=== PATIENT | male | born 1970 | race Caucasian/White ===

== ENCOUNTER 2017-06-16 21:14 | Inpatient (IN) ==
[2017-06-16] MEDS ORDERED: *HR* Heparin 5,000 UNIT/ML VIAL IVP ONE (21:42)
[2017-06-16] MEDS ORDERED: *HR* Heparin 5,000 UNIT/ML VIAL IVP PRN ×2 (21:42)
[2017-06-16] MEDS ORDERED: dilTIAZem HCl 100 MG in D5% in Water 50 ML IVC SCH (21:45)
[2017-06-16 21:46] LABS: Basophils % 0.3 %; Eosinophils # 0.1 K/mcL (0.0-0.6); Eosinophils % 1.5 %; Hematocrit 42.3 % (37.5-50.1); Hemoglobin 15.1 g/dL (12.9-16.9); Immature Granulocytes % 0.4 % (0-4); Lymphocytes # 2.6 K/mcL (0.6-4.6); Lymphocytes % 28.6 %; Mean Corpuscular HGB Conc 35.7 g/dL (31.6-35.5); Mean Corpuscular Hemoglobin 33.8 pg (28.0-33.3); Mean Corpuscular Volume 94.6 fL (83.0-100.0); Monocytes # 0.8 K/mcL (0.0-1.3); Monocytes % 8.9 %; Neutrophils # 5.4 K/mcL (1.6-8.9); Platelet Count 223 K/mcL (140-400); Red Blood Count 4.47 M/mcL (4.19-5.50); Red Cell Distribution Width 12.1 % (11.5-14.5); Segmented Neutrophils % 60.3 %
[2017-06-16 21:50] LABS: INR 1.2; Prothrombin Time 13.1 Seconds (9.4-12.1)
--- NOTE | 2017-06-16 21:50 | Emergency Department Note ---
Disposition Clinical Impression: New onset atrial fibrillation, Atrial fibrillation with RVR Disposition: Admitted As Inpatient Condition: Good Time of Disposition: 23:27 Arrhythmia/Palpitations HPI - General Chief Complaint: ED Arrhythmia/Palpitations Stated Complaint: rapid HR, dizziness Time Seen by Provider: 06/16/17 21:16 Source: patient, EMS Mode of arrival: EMS Limitations: no limitations Nursing Notes Reviewed: Yes Vital Signs Reviewed: Yes - History of Present Illness HPI Narrative: 46-year-old male history of chronic back pain, hypertension, pack per day smoker presents to the ED via EMS for fatigue. States he has been fatigue over the past several months likely since December. This been more frequent over the past several days and earlier today when he stood up he felt his heart racing. He called the EMS squad and on cardiac monitoring revealed atrial fibrillation with rapid ventricular response as high as 150. He denies any history of atrial fibrillation. Reports racing of the heart denies any chest discomfort. Denies any difficulty in breathing but some shortness of breath that is nothing new attributed to smoking. He denies any other recent illness, fever or productive cough. He takes lisinopril for his high blood pressure and recently increases Zoloft about a month ago. No history of cardiac ischemic disease. Reports echocardiogram several years ago that was reportedly normal. Denies any bloody stool, black tarry, or hemoptysis. He is in between primary care physicians for his chronic back pain. Recently evaluated at residency clinic. He is also reporting some urinary issues including dysuria and when he reports sludge when he urinates. Further history he reports history of prostate issues , takes Flomax this is been an issue over the past several years. He denies any urinary or fecal incontinence. He has pain in his right leg that is chronic as well. No concern for cauda equina this time. A full workup of his atrial fibrillation in progress. Also anticoagulated with heparin and as he has been likely in atrial fibrillation for greater than 48 hours. Patients in agreement with this plan. Pt Subjective Complaint: rapid heart beat, atrial fibrillation - Related Data Home Medications Medication Instructions Recorded Confirmed Lisinopril/Hydrochlorothiazide 1 tab PO DAILY 03/27/17 06/16/17 [Zestoretic 10-12.5 mg Tablet] Sertraline [Zoloft] 150 mg PO DAILY 03/27/17 06/16/17 Tamsulosin [Flomax] 0.4 mg PO DAILY 03/27/17 06/16/17 Pregabalin [Lyrica] 100 mg PO BID 06/16/17 06/16/17 Allergies Allergy/AdvReac Type Severity Reaction Status Date / Time codeine Allergy Difficulty Verified 06/16/17 21:16 Breathing morphine Allergy Difficulty Verified 06/16/17 21:16 Breathing All systems ED: reviewed and negative except as stated. Review of Systems: As Per HPI Constitutional: Reports: weakness. Denies: fever Eyes: Denies: eye pain, vision change ENT ED: Denies: hearing loss Cardiovascular: Reports: palpitations. Denies: chest pain, syncope Respiratory: Reports: cough, dyspnea. Denies: wheezes, hemoptysis Gastrointestinal: Denies: abdominal pain, nausea, vomiting Genitourinary: Reports: dysuria, discharge. Denies: urgency Musculoskeletal: Reports: back pain. Denies: neck pain Integumentary: Denies: rash, abrasion Neurological: Denies: headache, weakness, numbness Endocrine: Reports: fatigue. Denies: heat or cold intolerance Hematological/Lymphatic: Denies: easy bleeding Past Medical History - Past Medical History Attestation: Yes The following information was validated with the patient. Source: patient Medical history: Reports: COPD, GERD, hypertension, other Surgical history: Reports: appendectomy Psychiatric history: Reports: anxiety, depression - Social History Smoking Status: Current every day smoker Smokeless Tobacco Status: No Alcohol use: Reports: occasionally Drug use: Reports: marijuana Physical Exam - General Limitations: no limitations General appearance: alert, in no apparent distress - Head Head exam: atraumatic, normocephalic, normal inspection - Eye Eye exam: Present: normal appearance, PERRL, EOMI - ENT ENT exam: normal exam, normal oropharynx, mucous membranes moist - Neck Neck exam: Present: normal inspection, full ROM, trachea midline - Chest Chest inspection: Present: normal inspection, symmetric chest wall rise. Absent : tenderness - Respiratory Respiratory exam: Present: normal lung sounds bilaterally. Absent: respiratory distress, wheezes - Cardiovascular Cardiovascular exam: Present: tachycardia, irregular rhythm, normal heart sounds. Absent: systolic murmur, diastolic murmur - Expanded Cardiovascular Exam Peripheral pulses: 2+: radial (R), radial (L) - Abdominal Exam Abdominal exam: Present: soft, Non-Tender, normal bowel sounds. Absent: tenderness, distention, guarding, rebound, rigidity - Extremities Exam Extremities exam: Present: normal inspection, full ROM, normal capillary refill. Absent: tenderness, pedal edema, calf tenderness - Back Exam Back exam: Present: paraspinal tenderness, other (Large surgical scar to the lower thoracic and lumbar) - Neurological Exam Neurological exam: Present: alert, oriented X3 - Skin Skin exam: Present: warm, dry, intact, normal color Course - Reevaluation(s) Reevaluation #1: 46-year-old male presents with new onset atrial fibrillation with rapid ventricular response. Reports fatigue over the past several weeks. A workup was initiated. Patient was given 20 mg Cardizem bolus and heart rate has come down to the upper 90s. He has been started on a Cardizem drip. It appears he has been in atrial fibrillation greater than 48 hours. Patient denies any bloody stool, black tarry stools or hemoptysis. His labs or otherwise unremarkable. He is complaining of some acute on chronic back pain and request Percocet for pain. Patient will be admitted for further management and disposition. Patient and family are in agreement with this plan. Impression is atrial fibrillation with rapid ventricular response, new onset. Time: 23:25 Reevaluation #2: Labs reviewed and unremarkable. TSH within normal limits. Troponin 0.02. Chest x-rays unremarkable. Patient will be admitted for new onset atrial fibrillation. Continues to be atrial fibrillation with normal ventricular response heart rate 100. He is stable for admission to the hospital. - Consultations Consultation #1: Spoke with on-call hospitalist mellissa Espinoza to admit for new onset atrial fibrillation RVR. No further orders at this time Time: 23:42 Vital Signs Temperature 98.0 F 06/16/17 21:18 Pulse Rate 136 06/16/17 21:18 Respiratory Rate 18 06/16/17 21:18 Blood Pressure 109/92 06/16/17 21:18 O2 Sat by Pulse Oximetry 97 06/16/17 21:18 Temperature 98 F 06/17/17 04:38 Pulse Rate 78 06/17/17 04:38 Respiratory Rate 16 06/17/17 04:38 Blood Pressure 101/62 06/17/17 04:38 O2 Sat by Pulse Oximetry 95 06/17/17 04:38 Oxygen Delivery Oxygen Delivery Room Air Arrhythmia/Palpitations - Medical Records Medical records reviewed: Yes I reviewed the patient's medical records. - Lab Data Lab results reviewed: Yes I reviewed the patient's lab results. Result diagrams: 06/17/17 04:53 06/17/17 04:53 Lab Results 06/16/17 06/16/17 06/16/17 Range/Units 21:36 21:36 21:36 WBC 8.9 (4.3-11.1) K/mcL RBC 4.47 (4.19-5.50) M/mcL Hgb 15.1 (12.9-16.9) g/dL Hct 42.3 (37.5-50.1) % MCV 94.6 (83.0-100.0) fL MCH 33.8 H (28.0-33.3) pg MCHC 35.7 H (31.6-35.5) g/dL RDW 12.1 (11.5-14.5) % Plt Count 223 (140-400) K/mcL MPV 9.0 L (9.4-12.4) fL Immature Gran % 0.4 (0-4) % Seg Neutrophils % 60.3 % Lymphocytes % 28.6 % Monocytes % 8.9 % Eosinophils % 1.5 % Basophils % 0.3 % Neutrophils # 5.4 (1.6-8.9) K/mcL Lymphocytes # 2.6 (0.6-4.6) K/mcL Monocytes # 0.8 (0.0-1.3) K/mcL Eosinophils # 0.1 (0.0-0.6) K/mcL Basophils # 0.0 (0.0-0.2) K/mcL PT 13.1 H (9.4-12.1) Seconds INR 1.2 APTT 30.2 (26.0-36.0) Seconds Sodium 140 (136-145) mEq/L Potassium 3.7 (3.5-4.5) mEq/L Chloride 109 (98-109) mEq/L Carbon Dioxide 24 (19-29) mEq/L BUN 18 (8-26) mg/dL Creatinine 0.66 L (0.72-1.25) mg/dL Est GFR ( Amer) > 60 (> 60) Est GFR (Non-Af Amer) > 60 (> 60) BUN/Creatinine Ratio 27 H (6-26) Glucose 105 H (70-99) mg/dL Calculated Osmolality 292 (280-300) Calcium 9.3 (8.6-10.8) mg/dL Troponin I (0-0.03) ng/mL TSH 0.609 (0.350-4.840) mcIU/mL Urine Color (Yellow) Urine Clarity (Clear) Urine pH (5.0-8.0) pH Units Ur Specific [place] (1.010-1.025) Urine Protein (Neg-Trace) mg/dL Urine Glucose (UA) (Normal) mg/dL Urine Ketones (Negative) mg/dL Urine Blood (Negative) Urine Nitrite (Negative) Urine Bilirubin (Negative) Urine Urobilinogen (Normal) mg/dL Ur Leukocyte Esterase (Negative) Urine Microscopic RBC (0-3) per hpf Urine Microscopic WBC (0-3) per hpf Ur Squamous Epith Cells (None-Few) per lpf Urine Bacteria (None-Few) per hpf Hyaline Casts (None-Few) per lpf Ur Culture Indicated? (NO) 06/16/17 06/16/17 Range/Units 21:36 22:17 WBC (4.3-11.1) K/mcL RBC (4.19-5.50) M/mcL Hgb (12.9-16.9) g/dL Hct (37.5-50.1) % MCV (83.0-100.0) fL MCH (28.0-33.3) pg MCHC (31.6-35.5) g/dL RDW (11.5-14.5) % Plt Count (140-400) K/mcL MPV (9.4-12.4) fL Immature Gran % (0-4) % Seg Neutrophils % % Lymphocytes % % Monocytes % % Eosinophils % % Basophils % % Neutrophils # (1.6-8.9) K/mcL Lymphocytes # (0.6-4.6) K/mcL Monocytes # (0.0-1.3) K/mcL Eosinophils # (0.0-0.6) K/mcL Basophils # (0.0-0.2) K/mcL PT (9.4-12.1) Seconds INR APTT (26.0-36.0) Seconds Sodium (136-145) mEq/L Potassium (3.5-4.5) mEq/L Chloride (98-109) mEq/L Carbon Dioxide (19-29) mEq/L BUN (8-26) mg/dL Creatinine (0.72-1.25) mg/dL Est GFR ( Amer) (> 60) Est GFR (Non-Af Amer) (> 60) BUN/Creatinine Ratio (6-26) Glucose (70-99) mg/dL Calculated Osmolality (280-300) Calcium (8.6-10.8) mg/dL Troponin I 0.02 (0-0.03) ng/mL TSH (0.350-4.840) mcIU/mL Urine Color Yellow (Yellow) Urine Clarity Cloudy A (Clear) Urine pH 7.5 (5.0-8.0) pH Units Ur Specific [place] 1.022 (1.010-1.025) Urine Protein Negative (Neg-Trace) mg/dL Urine Glucose (UA) Normal (Normal) mg/dL Urine Ketones Negative (Negative) mg/dL Urine Blood Negative (Negative) Urine Nitrite Negative (Negative) Urine Bilirubin Negative (Negative) Urine Urobilinogen Normal (Normal) mg/dL Ur Leukocyte Esterase Negative (Negative) Urine Microscopic RBC 0-3 (0-3) per hpf Urine Microscopic WBC 0-3 (0-3) per hpf Ur Squamous Epith Cells None Seen (None-Few) per lpf Urine Bacteria None Seen (None-Few) per hpf Hyaline Casts None Seen (None-Few) per lpf Ur Culture Indicated? NO (NO) - Radiology Data Radiology results reviewed: Yes I reviewed the patient's radiology results. Chest X-Ray 06/16/17 21:23 IMPRESSION: No acute abnormality detected. D/ / Ivan Zarate MD / Ivan Zarate MD Interpreting Provider: Ivan Zarate MD - EKG Data EKG attestation: Yes I reviewed and interpreted this EKG. EKG results narrative: EKG performed 2124 reveals atrial fibrillation with rapid ventricular response hundred 34 bpm, QRS 103, occasional PVC. No ST elevations or depression. Compared to old EKG performed 12/04/2016 shows normal sinus rhythm 71 bpm. This is new onset atrial fibrillation. Attestation Statement - Attestation Attestation: I, Dwayne Harrison, examined this patient and my medical decision-making was reviewed with the PARTS DEPARTMENT SUPERVISOR/PA/Advanced Practice Nurse/Resident Physician. I agree with the documented findings, disposition and treatment plan as described except to the extent set forth below. 46-year-old male presents emergency Department with concerns of rapid heart rate and lightheadedness. Patient states he has had increasing weakness and lightheadedness with exertion over the past few days. EMS states patient is in atrial fibrillation with a rapid ventricular rate. He states his heart rate increase to above 150 during the transport to the hospital. Patient denies chest pain in the emergency department. No history of atrial fibrillation in the past. Patient will be started on Cardizem and heparin for further evaluation of his A. fib.
[2017-06-16 21:53] LABS: Activated Partial Thrombo Time 30.2 Seconds (26.0-36.0)
[2017-06-16 21:58] LABS: BUN/Creatinine Ratio 27 (6-26); Blood Urea Nitrogen 18 mg/dL (8-26); Calcium 9.3 mg/dL (8.6-10.8); Carbon Dioxide 24 mEq/L (19-29); Chloride 109 mEq/L (98-109); Glucose 105 mg/dL (70-99); Osmolality,Calculated 292 (280-300); Potassium 3.7 mEq/L (3.5-4.5); Sodium 140 mEq/L (136-145); eGFR For African Americans > 60 (> 60); eGFR For Non-African Americans > 60 (> 60)
[2017-06-16] MEDS: Heparin 25,000 UNIT/500 ML D5W 25,000 UNIT/500 ML MLS IVC SCH (22:01)
[2017-06-16 22:20] LABS: Thyroid Stimulating Hormone 0.609 mcIU/mL (0.350-4.840)
[2017-06-16 22:27] LABS: Bilirubin,Urine Negative (Negative); Blood,Urine Negative (Negative); Clarity,Urine Cloudy (Clear); Color,Urine Yellow (Yellow); Glucose,Urine (UA) Normal (Normal); Ketones,Urine Negative (Negative); Leukocyte Esterase,Urine Negative (Negative); Nitrite,Urine Negative (Negative); PH,Urine 7.5 pH Units (5.0-8.0); Protein,Urine Negative (Neg-Trace); Specific Gravity,Urine 1.022 (1.010-1.025); Urobilinogen,Urine Normal (Normal)
[2017-06-16 22:30] LABS: Bacteria,Urine None Seen per hpf (None-Few); Hyaline Casts,Urine None Seen per lpf (None-Few); RBC,Urine 0-3 per hpf (0-3); Squamous Epithelial Cell,Urine None Seen per lpf (None-Few); WBC,Urine 0-3 per hpf (0-3)
[2017-06-16] MEDS ORDERED: Acetaminophen 325 MG TABLET PO ONE (22:40)
[2017-06-16] MEDS ORDERED: *HR* OxyCODONE/APAP 5/325 TABLET PO ONE (23:25)
[2017-06-16] MEDS ORDERED: 0.9 % Sodium Chloride 1,000 ML IVC SCH (23:45)
[2017-06-17] MEDS ORDERED: Naloxone 0.4 MG/ML INJ IVP PRN (02:10)
--- NOTE | 2017-06-17 02:18 | Internal Med History&Physical ---
Date of Encounter: 06/17/17 Time of Encounter: 02:17 Assessment and Plan (1) New onset atrial fibrillation Current visit: Yes Status: Acute Symptoms date back to 2 months prior to presentation but weakness and shortness of breath associated this time NO illicit drug use Electrolytes are WNL, check Magnesium level TSH is WNL EKG shows Afib with RVR, history of same in mother HR controlled with cardizem, transition to oral diltiazem On heparin drip, continue CHADs score is 1 for HTN, start on ASA Continue heparin till ECHO reported and cardiology eval Check A1C Resume home medication for HTN which is currently controlled (2) HTN (hypertension) Current visit: Yes Status: Chronic Controlled on current meds, continue same, monitor closely Qualifiers: Hypertension type: essential hypertension Qualified Code(s): I10 - Essential (primary) hypertension (3) Tobacco abuse Current visit: Yes Status: Chronic Encouraged cessation (4) COPD (chronic obstructive pulmonary disease) Current visit: Yes Status: Chronic Not in exacerbation Duonebs prn Qualifiers: COPD type: unspecified COPD Qualified Code(s): J44.9 - Chronic obstructive pulmonary disease, unspecified (5) Chronic low back pain Current visit: Yes Status: Chronic Resume home dose of percocet Qualifiers: Back pain laterality: unspecified Sciatica presence: unspecified whether sciatica present Qualified Code(s): M54.5 - Low back pain; G89.29 - Other chronic pain; G89.29 - Other chronic pain Internal Medicine - H&P: HPI Chief complaint: Palpitations Admitted From: Home Plans for Post Hospital Care: Home History of present illness: Mr. Reyes is a 46 year old male with PMH of Obesity and HTN, as well as tobacco abuse he was in his usual state of health till 2 months ago when he begun having palpitations, he initially though it was related to his anxiety/panic attacks and his PCP increased his Zoloft to 150mg, but his symptoms persisted He had associated dizziness, drenching sweats and fatigue associated with the palpitations today, hence his presentation to the ER for evaluation EMS on arrival found patient to be in A fib with RVR, same is reported on EKG NO chest pain, shortness of breath had improved at time of presentation He denies cough, leg swelling, orthopnea or PND No n/v/diarrhea, no changes in bowel or urinary habits His mother has Afib as well He denies illicit drug use He responded to a bolus of cardizem and was started on cardizem drip by ER, respnded, at time of review, HR was 80 but not sinus ROS is significant for chronic low back pain due to multiple slipped discs. Patient is otherwise now hemodynamically stable No hx of thyroid disease Past Med Surg Social Fam HX - Past Medical History Medical history: COPD, GERD, hypertension, other Psychiatric history: anxiety, depression - Past Surgical History Surgical History: appendectomy - Social History Smoking Status: Current every day smoker Packs per day: 2 Smokeless Tobacco Status: No Alcohol use: occasionally Drug use: marijuana Internal Medicine - H&P: Meds Lisinopril/Hydrochlorothiazide [Zestoretic 10-12.5 mg Tablet] 1 tab PO DAILY [History] Sertraline [Zoloft] 150 mg PO DAILY 03/27/17 [History] Tamsulosin [Flomax] 0.4 mg PO DAILY 03/27/17 [History] Pregabalin [Lyrica] 100 mg PO BID 06/16/17 [History] 3 Allergy/AdvReac Type Severity Reaction Status Date / Time codeine Allergy Difficulty Verified 06/16/17 21:16 Breathing morphine Allergy Difficulty Verified 06/16/17 21:16 Breathing All Systems PM: A 10-system review of systems was performed and is negative for pertinent findings except as documented above in the HPI. - Constitutional Constitutional: as per HPI - EENT Eyes: as per HPI Ears: as per HPI Nose, mouth and throat: as per HPI - Cardiovascular Cardiovascular ROS IM: as per HPI - Respiratory Respiratory: as per HPI - Gastrointestinal Gastrointestinal: as per HPI - Musculoskeletal Musculoskeletal ROS IM: as per HPI - Integumentary Integumentary IM: as per HPI - Neurological Neurological ROS: as per HPI - Hematologic/Lymphatic Hematologic/Lymphatic: as per HPI - Constitutional Vitals: Temp Pulse Resp BP Pulse Ox 97.6 F 89 17 121/85 97 06/17/17 00:27 06/17/17 00:27 06/17/17 00:27 06/17/17 00:27 06/17/17 00:27 General appearance: Present: A&O X 3, pleasant, no acute distress, obese - Head Head exam: Present: atraumatic, normocephalic - Eye Eye exam: Present: PERRL, conjuntiva pink, sclera anicteric Pupils: Present: PERRL - Neck Neck exam general surgery: Present: supple, trachea midline. Absent: lymphadenopathy - Respiratory Respiratory exam: Present: CTAB. Absent: accessory muscle use, rales, rhonchi, wheezes - Cardiovascular Cardiovascular exam: Present: irregular rhythm, +S1, +S2. Absent: diastolic murmur, gallop, rubs, systolic murmur - GI/Abdominal GI/Abdominal exam: Present: normal bowel sounds, soft, no peritoneal signs. Absent: distended, tenderness - Extremities Exam Extremities exam: Present: warm, radial pulses palpable and symmetrical. Absent : calf tenderness, cyanotic, pedal edema - Neurological Exam Neurological exam: Present: alert, CN II-XII intact, oriented X3, no focal deficits. Absent: pronater drift, facial droop, speech deficit - Skin Skin exam: Present: dry, intact Internal Med - H&P Results - Labs CBC & Chem 7: 06/16/17 21:36 06/16/17 21:36
[2017-06-17] MEDS: dilTIAZem HCl 60 MG TABLET PO SCH ×3 (02:29→17:52)
[2017-06-17] MEDS: *HR* OxyCODONE/APAP 10/325 TABLET PO PRN ×5 (02:29→21:49)
[2017-06-17] MEDS ORDERED: Ipratropium/Albuterol Neb 3 ML IH PRN (03:02)
[2017-06-17 05:04] LABS: Basophils % 0.5 %; Eosinophils # 0.2 K/mcL (0.0-0.6); Eosinophils % 2.6 %; Hematocrit 43.3 % (37.5-50.1); Hemoglobin 15.2 g/dL (12.9-16.9); Immature Granulocytes % 0.7 % (0-4); Lymphocytes # 2.8 K/mcL (0.6-4.6); Lymphocytes % 36.8 %; Mean Corpuscular HGB Conc 35.1 g/dL (31.6-35.5); Mean Corpuscular Hemoglobin 33.5 pg (28.0-33.3); Mean Corpuscular Volume 95.4 fL (83.0-100.0); Mean Platelet Volume 9.1 fL (9.4-12.4); Monocytes # 0.7 K/mcL (0.0-1.3); Monocytes % 8.5 %; Neutrophils # 3.9 K/mcL (1.6-8.9); Platelet Count 208 K/mcL (140-400); Red Blood Count 4.54 M/mcL (4.19-5.50); Red Cell Distribution Width 12.3 % (11.5-14.5); Segmented Neutrophils % 50.9 %
[2017-06-17 05:12] LABS: BUN/Creatinine Ratio 22 (6-26); Blood Urea Nitrogen 14 mg/dL (8-26); Calcium 8.9 mg/dL (8.6-10.8); Carbon Dioxide 24 mEq/L (19-29); Chloride 109 mEq/L (98-109); Glucose 113 mg/dL (70-99); Osmolality,Calculated 289 (280-300); Potassium 3.6 mEq/L (3.5-4.5); Sodium 139 mEq/L (136-145); eGFR For African Americans > 60 (> 60); eGFR For Non-African Americans > 60 (> 60)
[2017-06-17 05:21] LABS: Activated Partial Thrombo Time 136.8 Seconds (26.0-36.0)
[2017-06-17 05:25] LABS: Heparin anti-factor XA UFH 0.61 IU/mL (0.30-0.70)
[2017-06-17] MEDS: Pregabalin 50 MG CAPSULE PO SCH ×2 (09:31→20:58)
[2017-06-17] MEDS: Aspirin Enteric Coated 81 MG Tablet PO SCH (09:31)
--- NOTE | 2017-06-17 13:30 | Cardiology Consult Note ---
Date of Encounter: 06/17/17 Time of Encounter: 13:24 Assessment and Plan (1) Chest pain Current Visit: Yes Status: Acute C/o chest pain with exertion. May be related to afib. Troponin negative. No acute ST changes. TTE shows normal LV function. Cardiac risk factors include HTN, Tobacco use, and significant family history of CAD in 1st degree relative (mother ID age 50, father ID in his 40's). Recommend stress test in the am. Qualifiers: Chest pain type: unspecified Qualified Code(s): R07.9 - Chest pain, unspecified (2) Atrial fibrillation with RVR Current Visit: Yes Status: Acute Presented with atrial fibrillation with RVR. C/o symptoms for one month. No previous diagnosis. Now rate controlled on oral cardizem. Convert to long acting at discharge. He is a CHADS VASc=1. Currently on heparin gtt. May plan to cardiovert in one month. Will require at least short term AC. Recommend NOAC if he does not convert to NSR prior to d/c . Patient agrees with plan. TTE- LVEF 55%. Normal LV chamber size and overall function. Indeterminate diastolic function. Grossly normal right ventricular structure and function. Severely dilated left atrium. Moderate to severely dilated right atrium. Unable to estimate RVSP due to lack of adequate TR jet. No obvious significant valvular dysfunction. Stress test tomorrow. Discussion w patient/family: The assessment and plan as outlined above was discussed with the patient and/or family members who expressed understanding and agreement. All questions were answered. Thank you for involving us in the care of your patient. Please call with any questions. History of Present Illness Consult date: 06/17/17 Requesting physician: Mesfin Burks Consult reason: Atrial fibrillation with RVR. Chief complaint: racing heart, chest pain. History of present illness: Mr. Reyes is a 46 year old male with a history of HTN, COPD, and tobacco use who presented with the c/o his heart racing and intermittent chest pain for one month. He was found to be in atrial fibrillation with RVR. Cardiology consulted for recommendations. He denies previous history of afib or heart disease. His symptoms started one month ago. Symptoms increase with activity and may occur at rest. he c/o chest pressure radiating to his neck and jaw that are associated with his palpitations but sometimes occur without palpitations. he also c/o SOB. Reports undergoing LHC in 2004. No flow limiting lesions seen at that time. He was started on cardizem and heparin gtt. He was converted to oral cardizem once he was rate controlled. Past Med Surg Social Fam HX - Past Medical History Medical history: COPD, GERD, hypertension, other Psychiatric history: anxiety, depression - Past Surgical History Surgical History: appendectomy - Social History Smoking Status: Current every day smoker Packs per day: 2 Smokeless Tobacco Status: No Alcohol use: occasionally Drug use: marijuana Medications and Allergies Lisinopril/Hydrochlorothiazide [Zestoretic 10-12.5 mg Tablet] 1 tab PO DAILY [History] Sertraline [Zoloft] 150 mg PO DAILY 03/27/17 [History] Tamsulosin [Flomax] 0.4 mg PO DAILY 03/27/17 [History] Pregabalin [Lyrica] 100 mg PO BID 06/16/17 [History] 3 Allergy/AdvReac Type Severity Reaction Status Date / Time codeine Allergy Difficulty Verified 06/16/17 21:16 Breathing morphine Allergy Difficulty Verified 06/16/17 21:16 Breathing All Systems Review: A 10-system review of systems was performed and is negative for pertinent findings except as documented above in the HPI. Physical Examination Vital Signs, Last 4 Hours Temp Pulse Resp BP Pulse Ox 06/17/17 11:40 97.8 F 67 20 116/75 97 General: Conversant, No Apparent Distress HEENT: Atraumatic, Normocephaly, Mucus Membranes Moist Neck: No JVD, Normal carotid pulses Cardiac: Other (Irregularly irregular) Lungs: Normal Breath Sounds, No Wheeze, Rales, Rhonchi Neuro: Alert and responsive, No focal deficits noted Abdomen: Soft, Non-Tender Skin: No rashes noted on visualized skin Musculoskeletal: No Chest Wall Tenderness Extremities: No Clubbing, No Cyanosis, No Edema, Normal Pulses Results 06/17/17 04:53 06/17/17 04:53 Lab Results 06/17/17 06/17/17 06/17/17 04:53 04:53 04:53 WBC 7.7 Hgb 15.2 Hct 43.3 Plt Count 208 APTT 136.8 H* D Sodium 139 Potassium 3.6 Chloride 109 Carbon Dioxide 24 BUN 14 Creatinine 0.65 L Glucose 113 H Calcium 8.9 Magnesium 2.0 06/17/17 12:18 WBC Hgb Hct Plt Count APTT 70.1 H Sodium Potassium Chloride Carbon Dioxide BUN Creatinine Glucose Calcium Magnesium - Imaging and Cardiology Chest Xray: report reviewed Echo: report reviewed - EKG Interpretation EKG results cardiology: personally reviewed Consult Discharge Plan - Plan Referrals: Claudine Wang [Primary Care Provider] -
[2017-06-17] MEDS: Heparin 25,000 UNIT/500 ML D5W 25,000 UNIT/500 ML MLS IVC SCH (13:59)
--- NOTE | 2017-06-17 15:14 | Electrocardiograph Report ---
[facility] [employer] Test Date: 2017-06-16 Pat Name: Matt Reyes Department: [id number] Room: 2A37 Gender: M Inside Sales Agent: KAHLIL : [id number] Requested By: Neymar Diaz Order Number: [id number] Reading MD: Bon Kwan MD Measurements Intervals Christmas Rate: 134 P: MI: 0 QRS: 59 QRSD: 103 T: -8 QT: 310 QTc: 389 Interpretive Statements ATRIAL FIBRILLATION WITH RAPID VENTRICULAR RESPONSE WITH ABERRANT CONDUCTION OR VENTRICULAR PREMATURE COMPLEXES NONSPECIFIC ST & T-WAVE ABNORMALITY Electronically Signed On 06-17-2017 15:13:15 EST by Bon Kwan MD
[2017-06-17] MEDS: Acetaminophen 325 MG TABLET PO PRN (20:58)
[2017-06-18] MEDS: dilTIAZem HCl 60 MG TABLET PO SCH (01:57)
[2017-06-18] MEDS: *HR* OxyCODONE/APAP 10/325 TABLET PO PRN ×5 (01:57→22:32)
[2017-06-18 04:07] LABS: Basophils % 0.7 %; Eosinophils # 0.3 K/mcL (0.0-0.6); Eosinophils % 4.1 %; Hematocrit 40.5 % (37.5-50.1); Hemoglobin 13.9 g/dL (12.9-16.9); Immature Granulocytes % 0.8 % (0-4); Lymphocytes # 2.5 K/mcL (0.6-4.6); Lymphocytes % 40.1 %; Mean Corpuscular HGB Conc 34.3 g/dL (31.6-35.5); Mean Corpuscular Hemoglobin 33.4 pg (28.0-33.3); Mean Corpuscular Volume 97.4 fL (83.0-100.0); Mean Platelet Volume 9.4 fL (9.4-12.4); Monocytes # 0.6 K/mcL (0.0-1.3); Monocytes % 9.2 %; Neutrophils # 2.8 K/mcL (1.6-8.9); Nucleated Red Blood Cells 0.3 /100 WBC (0); Platelet Count 218 K/mcL (140-400); Red Blood Count 4.16 M/mcL (4.19-5.50); Red Cell Distribution Width 12.1 % (11.5-14.5); Segmented Neutrophils % 45.1 %
[2017-06-18 04:22] LABS: BUN/Creatinine Ratio 23 (6-26); Blood Urea Nitrogen 16 mg/dL (8-26); Calcium 9.1 mg/dL (8.6-10.8); Carbon Dioxide 26 mEq/L (19-29); Chloride 107 mEq/L (98-109); Glucose 93 mg/dL (70-99); Osmolality,Calculated 291 (280-300); Sodium 140 mEq/L (136-145); eGFR For African Americans > 60 (> 60); eGFR For Non-African Americans > 60 (> 60)
[2017-06-18 04:23] LABS: Potassium 4.2 mEq/L (3.5-4.5)
[2017-06-18] MEDS ORDERED: Regadenoson 0.4 MG/5 ML SYRINGE IVP ONE (06:15)
[2017-06-18] MEDS: Heparin 25,000 UNIT/500 ML D5W 25,000 UNIT/500 ML MLS IVC SCH (06:35)
--- NOTE | 2017-06-18 07:34 | Event Note ---
Date of Encounter: 06/17/17 Time of Encounter: 07:34 Patient seen and examined this AM. 53 year old male presented with palpitations found to have new onset afib with RVR. 1 New onset afib - cardizem drip transitioned to oral. Heparin drip continued. Started on aspirin, CHADs score is 1. Echocardiogram ordered. Cardiology consulted, recommendations appreciated. 2 Hypertension - continue current medications and monitor.
--- NOTE | 2017-06-18 09:39 | Cardiology Progress Note ---
Date of Encounter: 06/18/17 Time of Encounter: 08:00 Assessment and Plan (1) Chest pain Current Visit: Yes Status: Acute C/o chest pain with exertion. May be related to afib. Troponin negative. No acute ST changes. TTE shows normal LV function. Cardiac risk factors include HTN, Tobacco use, and significant family history of CAD in 1st degree relative (mother MS age 50, father MS in his 40's). Stress test is pending. Qualifiers: Chest pain type: unspecified Qualified Code(s): R07.9 - Chest pain, unspecified (2) Atrial fibrillation with RVR Current Visit: Yes Status: Acute Presented with atrial fibrillation with RVR. C/o symptoms for one month. No previous diagnosis. Converted to NSR on oral cardizem. Convert to long acting . He is a CHADS VASc=1. Currently on heparin gtt. May plan to cardiovert in one month. Now that he is SR recommend asa for CVA prevention. TTE- LVEF 55%. Normal LV chamber size and overall function. Indeterminate diastolic function. Grossly normal right ventricular structure and function. Severely dilated left atrium. Moderate to severely dilated right atrium. Unable to estimate RVSP due to lack of adequate TR jet. No obvious significant valvular dysfunction. Stress test pending. 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 Last sleep study in 1999. Recommend sleep study in the out-pt setting. (3) Dizziness Current Visit: Yes Status: Acute Patient reports being seen in the ER one week ago with chest pain and dizziness. Reports frequent dizziness. May have been related to afib. Denies dizziness currently. While in afib noted to have 2.5 second pauses and HR in the 40's at times. Now NSR. Recommend sleep study. Carotid US ordered. Discussion w patient/family: The assessment and plan as outlined above was discussed with the patient and/or family members who expressed understanding and agreement. All questions were answered. Thank you for involving us in the care of your patient. Please call with any questions. Subjective Principal diagnosis: atrial fibrillation with RVR Interval history: Mr. Reyes denies chest pain overnight. He c/o extreme fatigue and says his head feels like a bowling ball. C/o frequent dizziness prior to admission. Reports ER visit where he was told he need a carotid US. Objective Vital Signs Temp Pulse Resp BP Pulse Ox 06/18/17 03:52 97.5 F L 55 18 109/67 95 06/17/17 23:47 97.6 F 63 18 105/63 95 06/17/17 20:22 97.6 F 56 18 104/63 96 06/17/17 15:51 97.8 F 67 18 104/66 95 06/17/17 11:40 97.8 F 67 20 116/75 97 Intake and Output 06/17/17 06/18/17 06/18/17 23:59 07:59 15:59 Intake Total 978 / 978 322 / 322 Output Total 500 / 500 Balance 478 / 478 322 / 322 Intake: IV Fluids 978 / 978 322 / 322 0.9 % Sodium Chloride 1,000 ML 800 / 800 @ 50 mls/hr IVC .Q20H BRIANA Rx#: [id number] Heparin 25,000 UNIT/500 ML D5W 178 / 178 322 / 322 25,000 unit In 500 ml @ 14 UNIT /KG/HR 38.61 mls/hr IVC . [id number] BRIANA Rx#:[id number] Output: Urine 500 / 500 Other: Weight 140.699 kg Patient Weight 06/18/17 23:59 Weight 140.699 kg General: Conversant, No Apparent Distress HEENT: Atraumatic, Normocephaly, Mucus Membranes Moist Neck: No JVD, Normal carotid pulses Cardiac: Reg Rate and Rhythm, Normal S1 and S2, No Murmur Lungs: Normal Breath Sounds, No Wheeze, Rales, Rhonchi Neuro: Alert and responsive, No focal deficits noted Abdomen: Soft, Non-Tender Skin: No rashes noted on visualized skin Musculoskeletal: No Chest Wall Tenderness Extremities: No Clubbing, No Cyanosis, No Edema, Normal Pulses Results 06/18/17 03:25 06/18/17 03:25 Lab Results 06/17/17 06/17/17 06/18/17 12:18 19:23 03:25 WBC 6.1 Hgb 13.9 Hct 40.5 Plt Count 218 APTT 70.1 H 71.6 H Sodium Potassium Chloride Carbon Dioxide BUN Creatinine Glucose Calcium Troponin I 06/18/17 06/18/17 03:25 03:25 WBC Hgb Hct Plt Count APTT Sodium 140 Potassium 4.2 Chloride 107 Carbon Dioxide 26 BUN 16 Creatinine 0.71 L Glucose 93 Calcium 9.1 Troponin I 0.01 - Imaging and Cardiology Stress Test: pending Echo: report reviewed - EKG Interpretation EKG results cardiology: personally reviewed Consult Discharge Plan - Plan Referrals: Claudine Wang [Primary Care Provider] - Prescriptions: Apixaban [Eliquis] 5 mg PO BID #30 tablet
[2017-06-18] MEDS: Pregabalin 50 MG CAPSULE PO SCH ×2 (09:52→20:17)
[2017-06-18] MEDS: Aspirin Enteric Coated 81 MG Tablet PO SCH (09:52)
[2017-06-18] MEDS: Diltiazem CD (24hr) 180 MG CAPSULE PO SCH (11:16)
[2017-06-18] MEDS: Silvasorb 44.4 ML TUBE TP SCH (13:50)
[2017-06-18] MEDS: Acetaminophen 325 MG TABLET PO PRN (13:57)
[2017-06-18] MEDS: Doxycycline 100 MG CAPSULE PO SCH (20:17)
--- NOTE | 2017-06-19 00:38 | Internal Med Progress Note ---
Date of Encounter: 06/18/17 Time of Encounter: 11:36 - Assessment and plan (1) Chest pain Current Visit: Yes Status: Acute Assessment and plan: Stress test pending. Likely DC tomorrow AM if negative and remains stable. Qualifiers: Chest pain type: unspecified Qualified Code(s): R07.9 - Chest pain, unspecified (2) New onset atrial fibrillation Current Visit: Yes Status: Acute (3) Cellulitis of toe of left foot Current Visit: Yes Status: Acute Assessment and plan: Patient ripped off nail causing infection. Informed him now that he will be on asa and possibly antiocagulants in the future, this puts high risk for bleeding on top of the infection risk. Start Doxycycline. (4) Atrial fibrillation with RVR Current Visit: Yes Status: Acute (5) HTN (hypertension) Current Visit: Yes Status: Chronic Qualifiers: Hypertension type: essential hypertension Qualified Code(s): I10 - Essential (primary) hypertension (6) COPD (chronic obstructive pulmonary disease) Current Visit: Yes Status: Chronic Qualifiers: COPD type: unspecified COPD Qualified Code(s): J44.9 - Chronic obstructive pulmonary disease, unspecified - Subjective Interval history: No acute events. Denies cp, sob, palpitations. - Constitutional Vitals: Temp Pulse Resp BP Pulse Ox 97.5 F L 56 18 119/69 93 06/18/17 21:11 06/18/17 21:11 06/18/17 21:11 06/18/17 21:11 06/18/17 21:11 General appearance: Present: A&O X 3, pleasant, no acute distress, obese Exam: CVS: RRR Lungs: CTAB Ext: left great toe with granulation tissue and the lateral nail bed. Internal Medicine: Result - Labs CBC & Chem 7: 06/18/17 03:25 06/18/17 03:25 Labs: Short CBC 06/18/17 Range/Units 03:25 WBC 6.1 (4.3-11.1) K/mcL Hgb 13.9 (12.9-16.9) g/dL Hct 40.5 (37.5-50.1) % Plt Count 218 (140-400) K/mcL Neutrophils # 2.8 (1.6-8.9) K/mcL BMP 06/18/17 03:25 Sodium 140 Potassium 4.2 Chloride 107 Carbon Dioxide 26 BUN 16 Creatinine 0.71 L Glucose 93 Calcium 9.1 Cardiac Enzymes 06/18/17 Range/Units 03:25 Troponin I 0.01 (0-0.03) ng/mL - ABG Interpretation ABG results: PT/INR, D-dimer PT 13.1 Seconds (9.4-12.1) H 06/16/17 21:36 Consult Discharge Plan - Plan Referrals: Claudine Wang [Primary Care Provider] - Prescriptions: Apixaban [Eliquis] 5 mg PO BID #30 tablet
[2017-06-19 03:03] LABS: Basophils % 0.6 %; Eosinophils # 0.2 K/mcL (0.0-0.6); Eosinophils % 3.4 %; Hematocrit 41.1 % (37.5-50.1); Lymphocytes % 38.7 %; Mean Corpuscular HGB Conc 34.1 g/dL (31.6-35.5); Mean Corpuscular Hemoglobin 33.3 pg (28.0-33.3); Mean Corpuscular Volume 97.6 fL (83.0-100.0); Mean Platelet Volume 9.1 fL (9.4-12.4); Monocytes # 0.5 K/mcL (0.0-1.3); Monocytes % 10.3 %; Neutrophils # 2.4 K/mcL (1.6-8.9); Platelet Count 209 K/mcL (140-400); Red Blood Count 4.21 M/mcL (4.19-5.50); Red Cell Distribution Width 12.3 % (11.5-14.5)
[2017-06-19 03:17] LABS: BUN/Creatinine Ratio 18 (6-26); Blood Urea Nitrogen 13 mg/dL (8-26); Calcium 9.7 mg/dL (8.6-10.8); Carbon Dioxide 31 mEq/L (19-29); Chloride 104 mEq/L (98-109); Glucose 89 mg/dL (70-99); Osmolality,Calculated 290 (280-300); Potassium 4.6 mEq/L (3.5-4.5); Sodium 140 mEq/L (136-145); eGFR For African Americans > 60 (> 60); eGFR For Non-African Americans > 60 (> 60)
[2017-06-19] MEDS: *HR* OxyCODONE/APAP 10/325 TABLET PO PRN ×4 (06:51→19:36)
[2017-06-19] MEDS: Pregabalin 50 MG CAPSULE PO SCH ×2 (08:54→19:36)
[2017-06-19] MEDS: Aspirin Enteric Coated 81 MG Tablet PO SCH (08:55)
[2017-06-19] MEDS: Doxycycline 100 MG CAPSULE PO SCH ×2 (08:55→19:36)
[2017-06-19] MEDS: Diltiazem CD (24hr) 180 MG CAPSULE PO SCH (09:03)
[2017-06-19] MEDS: Silvasorb 44.4 ML TUBE TP SCH ×2 (14:45→22:17)
[2017-06-19] MEDS: Acetaminophen 325 MG TABLET PO PRN ×2 (18:20→18:24)
[2017-06-19] MEDS ORDERED: hydrOXYzine pamoate 25 MG CAPSULE PO PRN (20:37)
[2017-06-20] MEDS: *HR* OxyCODONE/APAP 10/325 TABLET PO PRN ×3 (00:11→10:13)
--- NOTE | 2017-06-20 00:25 | Internal Med Progress Note ---
Date of Encounter: 06/19/17 Time of Encounter: 12:22 - Assessment and plan (1) Chest pain Current Visit: Yes Status: Acute Assessment and plan: Stress test negative for ischemia, symptoms was from afib with rvr. Qualifiers: Chest pain type: unspecified Qualified Code(s): R07.9 - Chest pain, unspecified (2) New onset atrial fibrillation Current Visit: Yes Status: Acute Assessment and plan: Heavy smoker and coffee drinker (4 cups per day), and MELISSA, presented with one month of cp/palpitations found to be in atrial fibrillation with RVR. He was started on cardizem drip, converted to NSR and then transitioned to oral. Cardiology was consulted and patient had stress test which was negative. He is to go home on Eliquis. He has been bradycardic but asymptomatic in past day after starting PO Cardizem. Given he is back to NSR and no longer tachycardic, most likely main triggers are tobacco, caffeine are heavy contribution on top of MELISSA. 06/19: Will monitor him throughout the day after Cardizem has been held today. Depending on his heart rate in the morning, we may see if cardizem should be resumed. He will be discharged home with Eliquis. (3) Cellulitis of toe of left foot Current Visit: Yes Status: Acute Assessment and plan: Patient ripped off nail causing infection. Informed him now that he will be on asa and possibly antiocagulants in the future, this puts high risk for bleeding on top of the infection risk. Continue doxycycline (4) Atrial fibrillation with RVR Current Visit: Yes Status: Acute (5) HTN (hypertension) Current Visit: Yes Status: Chronic Qualifiers: Hypertension type: essential hypertension Qualified Code(s): I10 - Essential (primary) hypertension (6) COPD (chronic obstructive pulmonary disease) Current Visit: Yes Status: Chronic Qualifiers: COPD type: unspecified COPD Qualified Code(s): J44.9 - Chronic obstructive pulmonary disease, unspecified - Subjective Interval history: Patient frusterated he would like to smoke. HR has been borderline lower normal limit this AM and cardizem was held. He denies cp, sob, palpitations, n/ v, diaphoresis - Constitutional Vitals: Temp Pulse Resp BP Pulse Ox 97.7 F 57 17 116/65 94 06/20/17 00:14 06/20/17 00:14 06/20/17 00:14 06/20/17 00:14 06/20/17 00:14 General appearance: Present: A&O X 3, pleasant, no acute distress, obese Internal Medicine: Result - Labs CBC & Chem 7: 06/19/17 02:46 06/19/17 02:46 Labs: Short CBC 06/19/17 Range/Units 02:46 WBC 5.2 (4.3-11.1) K/mcL Hgb 14.0 (12.9-16.9) g/dL Hct 41.1 (37.5-50.1) % Plt Count 209 (140-400) K/mcL Neutrophils # 2.4 (1.6-8.9) K/mcL BMP 06/19/17 02:46 Sodium 140 Potassium 4.6 H Chloride 104 Carbon Dioxide 31 H BUN 13 Creatinine 0.73 Glucose 89 Calcium 9.7 - ABG Interpretation ABG results: PT/INR, D-dimer PT 13.1 Seconds (9.4-12.1) H 06/16/17 21:36 Consult Discharge Plan - Plan Referrals: Claudine Wang [Primary Care Provider] - Prescriptions: Apixaban [Eliquis] 5 mg PO BID #30 tablet
[2017-06-20 03:35] LABS: Eosinophils % 3.4 %; Hematocrit 44.3 % (37.5-50.1); Hemoglobin 15.3 g/dL (12.9-16.9); Immature Granulocytes % 0.8 % (0-4); Lymphocytes % 37.1 %; Mean Corpuscular HGB Conc 34.5 g/dL (31.6-35.5); Mean Corpuscular Hemoglobin 33.8 pg (28.0-33.3); Mean Corpuscular Volume 97.8 fL (83.0-100.0); Mean Platelet Volume 9.3 fL (9.4-12.4); Monocytes % 10.2 %; Platelet Count 233 K/mcL (140-400); Red Blood Count 4.53 M/mcL (4.19-5.50); Red Cell Distribution Width 12.1 % (11.5-14.5); Segmented Neutrophils % 48.2 %
[2017-06-20 03:36] LABS: Basophils % 0.3 %; Eosinophils # 0.2 K/mcL (0.0-0.6); Lymphocytes # 2.2 K/mcL (0.6-4.6); Monocytes # 0.6 K/mcL (0.0-1.3); Neutrophils # 2.8 K/mcL (1.6-8.9)
[2017-06-20 03:48] LABS: BUN/Creatinine Ratio 20 (6-26); Blood Urea Nitrogen 17 mg/dL (8-26); Calcium 9.7 mg/dL (8.6-10.8); Carbon Dioxide 31 mEq/L (19-29); Chloride 103 mEq/L (98-109); Glucose 100 mg/dL (70-99); Osmolality,Calculated 292 (280-300); Potassium 4.6 mEq/L (3.5-4.5); Sodium 140 mEq/L (136-145); eGFR For African Americans > 60 (> 60); eGFR For Non-African Americans > 60 (> 60)
[2017-06-20] MEDS: Aspirin Enteric Coated 81 MG Tablet PO SCH (09:00)
[2017-06-20 09:07] VITALS: BP 140/80
[2017-06-20] MEDS: Pregabalin 50 MG CAPSULE PO SCH (09:07)
[2017-06-20] MEDS: Doxycycline 100 MG CAPSULE PO SCH (09:07)
[2017-06-20] MEDS: Diltiazem CD (24hr) 180 MG CAPSULE PO SCH (09:12)
--- NOTE | 2017-06-20 10:13 | Discharge Summary ---
Date of Encounter: 06/20/17 Time of Encounter: 10:10 - Discharge Diagnosis (1) New onset atrial fibrillation Priority: Primary Status: Acute (2) Chest pain Priority: Secondary Status: Resolved Qualifiers: Chest pain type: unspecified Qualified Code(s): R07.9 - Chest pain, unspecified (3) Cellulitis of toe of left foot Priority: Secondary Status: Acute (4) Atrial fibrillation with RVR Priority: Secondary Status: Resolved (5) HTN (hypertension) Priority: Secondary Status: Chronic Qualifiers: Hypertension type: essential hypertension Qualified Code(s): I10 - Essential (primary) hypertension (6) COPD (chronic obstructive pulmonary disease) Priority: Secondary Status: Chronic Qualifiers: COPD type: unspecified COPD Qualified Code(s): J44.9 - Chronic obstructive pulmonary disease, unspecified - Discharge Medications Prescriptions: Apixaban [Eliquis] 5 mg PO BID #30 tablet Doxycycline 100 mg PO BID #14 capsule Home Medications: Lisinopril/Hydrochlorothiazide [Zestoretic 10-12.5 mg Tablet] 1 tab PO DAILY [History] Sertraline [Zoloft] 150 mg PO DAILY 03/27/17 [History] Tamsulosin [Flomax] 0.4 mg PO DAILY 03/27/17 [History] Pregabalin [Lyrica] 100 mg PO BID 06/16/17 [History] Apixaban [Eliquis] 5 mg PO BID #30 tablet 06/17/17 [Rx] Aspirin Enteric Coated [Aspirin EC] 81 mg PO DAILY tablet. 06/20/17 [Rx] Doxycycline 100 mg PO BID #14 capsule 06/20/17 [Rx] Silvasorb 1 appl TP DAILY tube 06/20/17 [Rx] Allergies/Adverse Reactions: 3 Allergy/AdvReac Type Severity Reaction Status Date / Time codeine Allergy Difficulty Verified 06/16/17 21:16 Breathing morphine Allergy Difficulty Verified 06/16/17 21:16 Breathing Procedures/tests Complete & Pending: Procedures Performed prior 72 hours Category Date Time Status NM savannah perf SPECT multi [NM] Routine Exams 06/17/17 13:40 Taken EV carotid duplex imaging BI Routine Y 06/18/17 09:36 Completed SP pharm nuclear stress Routine Y 06/18/17 08:45 Completed Date of admission: 06/17/17 02:10 Primary care physician: Claudine Wang Consults: 06/17/17 02:15 Consult to Cardiology [CONS] Routine Comment: Consulting Provider: Shayla Herzog Reason for Consult: Afib with RVR=New onset Call Completed: No 06/17/17 12:16 Consult to Wound Care [CONS] Routine Reason for Consult: Toe wound Call Completed: No Discharging clinician: Carola Judd - Patient Status Disposition: Home, Self-Care Condition: Good Functional capacity at discharge: independent ambulation Overall status at discharge: patient is progressing back to baseline - Discharge Instructions Follow Up With: Claudine Wang [Primary Care Provider] - - Diet and Activity Activity: increase activity as tolerated Diet: low fat, low cholesterol, low salt diet Hospital course: Mr. Reyes is a 46 year old male and attributed this to anxiety. He went to primary care physician office and his Zoloft was increased on her 50 mg daily however his symptoms persisted during arrival to the EMS found patient to be an atrophic relation with RVR as well as the seen on EKG in the ED. He denies any illicit drug use. His heart rate was controlled after getting a bolus of Cardizem and then started on Cardizem drip. Eventually transitioned to oral Cardizem. He was started on a heparin drip. Initially he was started on aspirin as his chads score was 1 for hypertension. Cardiology was consulted, an echocardiogram was done showing ejection fraction of 55% with normal diastolic function and systolic function. He did have a severely dilated left atrium. He underwent stress test which was negative for ischemia. Patient was able to remain with heart rate less than 110 bpm on telemetry monitoring. At one point patient was running heart rates in the upper 50s to lower 60s constant after day of monitoring and so Cardizem was held. Discussed with cardiology and patient will be discharged with Cardizem CD 120 mg which is a lower dose than what was given in the hospital. Blood pressure is normal at this time. He is to have a Holter monitor 48 hours set up for monitoring with close for follow-up cardiology. Patient was noted to have a right toe cellulitis, this was after patient left office toenail and became infected. A wound culture was done showing positive for MRSA. He was started on doxycycline and will be discharged to complete 7 more days. There was discussion in regards to tobacco cessation for multiple reasons including COPD worsening, hypertension, risk for NM and stroke, and worsening of his fibrillation. He is instructed to follow-up with cardiology shortly after Holter monitoring, follow-up with primary care physician for monitoring of cellulitis of his toe is discharged home in stable condition Time spent discussing smoking cessation with patient: 3 to 10 minutes - Time Spent with Patient Total time spent providing and/or coordinating discharge services: Less than 30 minutes - Constitutional Vitals: Temp Pulse Resp BP Pulse Ox 97.2 F L 62 18 140/80 99 06/20/17 09:06 06/20/17 09:06 06/20/17 09:06 06/20/17 09:06 06/20/17 09:06 General appearance: Present: A&O X 3, pleasant, no acute distress, obese Exam: CVS: Regular rate and rhythm, no murmurs rubs gallops Lungs: Clear to auscultation bilaterally Abdomen: Soft nontender nondistended. Extremities: No pedal edema, left toe with granulation and erythema consistent with cellulitis. Improved since my exam yesterday.
== END 2017-06-20 11:20 | disposition home or self-care (01) | DRG 201 ==
LOC: EMEROO 21:14 → 2ANU 21:14
PROVIDERS: ADMIT Internal Medicine; ATTEND Family Medicine

== ENCOUNTER 2018-08-28 14:38 | Inpatient (IN) ==
--- NOTE | 2018-08-28 15:07 | Emergency Department Note ---
Disposition Clinical Impression: Puncture wound, Fasciitis Cellulitis Qualifiers: Site of cellulitis: extremity Site of cellulitis of extremity: lower extremity Laterality: right Qualified Code(s): L03.115 - Cellulitis of right lower limb Ulcer of toe Qualifiers: Laterality: right Non-pressure ulcer stage: unspecified non-pressure ulcer st age Qualified Code(s): L97.519 - Non-pressure chronic ulcer of other part of right foot with unspecified severity Disposition: Admitted As Inpatient Condition: Fair Time of Disposition: 17:22 General Adult HPI - General Chief complaint: ED Extremity Problem,Nontraumatic Stated complaint: RLE "Infection" Time Seen by Provider: 08/28/18 14:47 Source: patient Mode of arrival: ambulatory Limitations: no limitations Nursing Notes Reviewed: Yes Vital Signs Reviewed: Yes - History of Present Illness HPI Narrative: 48-year-old male with a history of methamphetamine use presents for evaluation of right toe infection. Patient states that he has a fetish with pulling his toenails. States that he did pull his toenails and noted approximately 8 days worth of right toe pain with redness and pain. No swelling and redness has progressed and now is streaking up his leg. Patient noted a fever couple days ago of 100.6. Patient denies a nausea vomiting. No chest pain yesterday. Patient also notes that he had a puncture wound to his great toe on his right foot approximately a month ago states that he did that on purpose attempting to pierces toe. 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 No history of diabetes. No history of any IV drug use but states he does snort methamphetamine. Pain Scale: 10 - Related Data Home Medications Medication Instructions Recorded Confirmed Lisinopril/Hydrochlorothiazide 1 tab PO DAILY 03/27/17 06/17/17 [Zestoretic 10-12.5 mg Tablet] Sertraline [Zoloft] 150 mg PO DAILY 03/27/17 06/17/17 Tamsulosin [Flomax] 0.4 mg PO DAILY 03/27/17 06/17/17 Pregabalin [Lyrica] 100 mg PO BID 06/16/17 06/17/17 Previous Rx's Medication Instructions Recorded Apixaban [Eliquis] 5 mg PO BID #30 tablet 06/17/17 Aspirin Enteric Coated [Aspirin EC] 81 mg PO DAILY tablet. 06/20/17 Diltiazem CD (24hr) [Cardizem CD] 120 mg PO DAILY #30 cap.er.24h 06/20/17 Doxycycline 100 mg PO BID #14 capsule 06/20/17 Silvasorb 1 appl TP DAILY tube 06/20/17 Cefdinir [Omnicef] 300 mg PO BID #14 capsule 10/20/17 Hydrocodone/Acetaminophen 1 each PO TID PRN 2 Days #6 tablet 10/20/17 [Hydrocodon-Acetaminophen 5-325] predniSONE [Prednisone] 40 mg PO DAILY #3 tablet 10/20/17 Allergies Allergy/AdvReac Type Severity Reaction Status Date / Time codeine Allergy Difficulty Verified 10/20/17 16:35 Breathing morphine Allergy Difficulty Verified 10/20/17 16:35 Breathing All systems ED: reviewed and negative except as stated. Constitutional: Reports: fever Cardiovascular: Reports: chest pain Respiratory: Denies: cough, dyspnea Gastrointestinal: Denies: abdominal pain, nausea, vomiting Musculoskeletal: Denies: back pain Past Medical History - Past Medical History Source: patient Medical history: Reports: COPD, GERD, hypertension, other Surgical history: Reports: appendectomy Psychiatric history: Reports: anxiety, depression - Social History Smoking Status: Current every day smoker Smokeless Tobacco Status: No Alcohol use: Reports: occasionally Drug use: Reports: marijuana, methamphetamine Physical Exam - General Limitations: no limitations General appearance: alert, in no apparent distress, other (Poor hygiene) - Head Head exam: atraumatic, normocephalic, normal inspection - Eye Eye exam: Present: normal appearance, PERRL, EOMI - ENT ENT exam: normal exam, mucous membranes moist - Neck Neck exam: Present: normal inspection - Chest Chest inspection: Present: normal inspection, symmetric chest wall rise - Respiratory Respiratory exam: Present: normal lung sounds bilaterally. Absent: respiratory distress - Cardiovascular Cardiovascular exam: Present: regular rate, normal rhythm. Absent: systolic murmur - Abdominal Exam Abdominal exam: Present: soft, Non-Tender - Extremities Exam Extremities exam: Present: other (Patient does have removal of his distal toenails. Does appear to have asymmetric right great toe redness and swelling with redness of the right lower extremity. Also notes redness that is tracking up his leg on the medial aspect of his groin. No crepitus. Palpable DPs.) - Skin Skin exam: Present: warm, dry, intact, normal color Course Course Narrative: Patient was instructed that he will likely need admission with IV antibiotics and close monitoring. Given the concerns of overwhelming infection in his right foot with now proximal advancement. Patient states that he does not want to stay. States that he has "other things he needs to do". Patient states that he does have family and friends at home for support however is adamant about not staying in the hospital. Patient was instructed the risks of leaving his medical advice which includes worsening current medical condition, and loss of his left leg multiorgan failure with ultimate sepsis. - Reevaluation(s) Reevaluation #1: Patient ultimately agreed for admission and therapies. Time: 15:15 Reevaluation #2: Patient is agreeable to admission. Time: 17:39 - Consultations Consultation #1: Did speak with who will evaluate the patient. Time: 17:31 Vital Signs Temperature 98.2 F 08/28/18 14:40 Pulse Rate 93 08/28/18 14:40 Respiratory Rate 16 08/28/18 14:40 Blood Pressure 120/79 08/28/18 14:40 O2 Sat by Pulse Oximetry 100 08/28/18 14:40 Temperature 98.2 F 08/28/18 14:40 Pulse Rate 93 08/28/18 14:40 Respiratory Rate 16 08/28/18 14:40 Blood Pressure 120/79 08/28/18 14:40 O2 Sat by Pulse Oximetry 100 08/28/18 14:40 Oxygen Delivery Oxygen Delivery Room Air Medical Decision Making - MDM Narrative Medical decision making narrative: Patient presents initially for concerns of a toe infection lower leg infection. Patient does have history of piercing his toe. Likely either [address] impression report was discussed with Dr. Estrada, podiatry. States that he will evaluate the patient. At this time there appears to be no purulent drainage noted that cultures can be obtained. Patient did get blood cultures and was started on the most appropriate antibiotics. Patient is aware that he will need close inpatient monitoring with IV antibiotics and likely surgery regarding his infection of his toe. At this time the patient does not appear to have a DVT and appears more to be related to his swelling of his leg. - Lab Data Lab results reviewed: Yes I reviewed the patient's lab results. Result diagrams: 08/28/18 15:25 08/28/18 15:25 Lab Results 08/28/18 08/28/18 08/28/18 Range/Units 15:25 15:25 15:25 WBC 7.5 (4.3-11.1) K/mcL RBC 3.84 L (4.19-5.50) M/mcL Hgb 12.0 L (12.9-16.9) g/dL Hct 33.9 L (37.5-50.1) % MCV 88.3 (83.0-100.0) fL MCH 31.3 (28.0-33.3) pg MCHC 35.4 (31.6-35.5) g/dL RDW 11.9 (11.5-14.5) % Plt Count 211 (140-400) K/mcL MPV 8.8 L (9.4-12.4) fL Immature Gran % 0.4 (0-4) % Seg Neutrophils % 67.4 % Lymphocytes % 18.1 % Monocytes % 11.7 % Eosinophils % 2.1 % Basophils % 0.3 % Neutrophils # 5.1 (1.6-8.9) K/mcL Lymphocytes # 1.4 (0.6-4.6) K/mcL Monocytes # 0.9 (0.0-1.3) K/mcL Eosinophils # 0.2 (0.0-0.6) K/mcL Basophils # 0.0 (0.0-0.2) K/mcL ESR (0-10) mm/hr PT (9.4-12.1) Seconds INR Sodium 131 L (136-145) mEq/L Potassium 3.3 L (3.5-5.1) mEq/L Chloride 99 (98-107) mEq/L Carbon Dioxide 26 (23-29) mEq/L BUN 10 (6-20) mg/dL Creatinine 0.57 L (0.70-1.30) mg/dL Est GFR ( Amer) > 60 (> 60) Est GFR (Non-Af Amer) > 60 (> 60) BUN/Creatinine Ratio 18 (6-26) Glucose 107 H (70-105) mg/dL Calculated Osmolality 272 L (280-300) Lactic Acid 1.0 (0.5-2.2) mmol/L Calcium 9.2 (8.6-10.3) mg/dL Total Bilirubin 0.9 (0.3-1.0) mg/dL AST 11 L (13-39) Units/L ALT 11 (7-52) Units/L Alkaline Phosphatase 66 (34-104) Units/L Troponin I < 0.03 (< 0.04) ng/mL C-Reactive Protein (Less than 10) mg/L Serum Total Protein 6.8 (6.4-8.9) g/dL Albumin 3.6 (3.5-5.7) g/dL Globulin 3.2 (2.4-3.5) g/dL Albumin/Globulin Ratio 1.1 (1.1-2.2) 08/28/18 08/28/18 08/28/18 Range/Units 15:25 15:25 15:25 WBC (4.3-11.1) K/mcL RBC (4.19-5.50) M/mcL Hgb (12.9-16.9) g/dL Hct (37.5-50.1) % MCV (83.0-100.0) fL MCH (28.0-33.3) pg MCHC (31.6-35.5) g/dL RDW (11.5-14.5) % Plt Count (140-400) K/mcL MPV (9.4-12.4) fL Immature Gran % (0-4) % Seg Neutrophils % % Lymphocytes % % Monocytes % % Eosinophils % % Basophils % % Neutrophils # (1.6-8.9) K/mcL Lymphocytes # (0.6-4.6) K/mcL Monocytes # (0.0-1.3) K/mcL Eosinophils # (0.0-0.6) K/mcL Basophils # (0.0-0.2) K/mcL ESR 57 H (0-10) mm/hr PT 17.5 H (9.4-12.1) Seconds INR 1.6 Sodium (136-145) mEq/L Potassium (3.5-5.1) mEq/L Chloride (98-107) mEq/L Carbon Dioxide (23-29) mEq/L BUN (6-20) mg/dL Creatinine (0.70-1.30) mg/dL Est GFR ( Amer) (> 60) Est GFR (Non-Af Amer) (> 60) BUN/Creatinine Ratio (6-26) Glucose (70-105) mg/dL Calculated Osmolality (280-300) Lactic Acid (0.5-2.2) mmol/L Calcium (8.6-10.3) mg/dL Total Bilirubin (0.3-1.0) mg/dL AST (13-39) Units/L ALT (7-52) Units/L Alkaline Phosphatase (34-104) Units/L Troponin I (< 0.04) ng/mL C-Reactive Protein 129 H (Less than 10) mg/L Serum Total Protein (6.4-8.9) g/dL Albumin (3.5-5.7) g/dL Globulin (2.4-3.5) g/dL Albumin/Globulin Ratio (1.1-2.2) - Radiology Data Radiology results reviewed: Yes I reviewed the patient's radiology results. Chest X-Ray 08/28/18 15:10 IMPRESSION: No acute findings. D/ / Yazan Huerta MD / Yazan Huerta MD Interpreting Provider: Yazan Huerta MD Lower Extremity CT 08/28/18 15:10 IMPRESSION: Ulceration of the distal great toe, with gas extending to the level of the bone. No CT evidence of osteomyelitis is detected at this time. Along the plantar and medial aspect of the great toe, there is focal fluid and or necrosis, measuring approximately 1.7 cm maximally. That is in a very superficial location, and therefore correlate clinically. More proximally within the lower extremity, circumferential edema is present, especially medially, most compatible with cellulitis/fasciitis. No soft tissue gas or drainable fluid collection is found more proximally. Linear metallic foreign body within the plantar soft tissues at the level the distal 4th metatarsal. D/ / Casper Jay MD / Casper Jay MD Interpreting Provider: Casper Jay MD - EKG Data EKG #1 EKG attestation: Yes I reviewed and interpreted this EKG. EKG shows normal: sinus rhythm Rate: normal Rhythm: NSR [place]/QRS: normal Interpretation: no acute changes, nonspecific ST-T wave changes S.Destinee - Demetris Situation: Demographics Background: Presenting Complaint Assessment: Vital Signs, Course and respsone to treatment, Patient/Family Expectation Recommendation: Barrier(s) to disposition, Recommendation based on pending studies, treatments, or consults S.B.A.Stephanie Report Given to: Dr. Adenike Willson Repor Time: 17:39
[2018-08-28] MEDS ORDERED: Isovue-370 500 ML BOTTLE IVP ONE (15:10)
[2018-08-28] MEDS ORDERED: Ketorolac 15 MG/ML VIAL IVP ONE (15:11)
[2018-08-28] MEDS ORDERED: Piperacillin/Tazobactam 3.375 GM in 0.9 % Sodium Chloride Mini Bag 100 ML IVPB ONE (15:11)
[2018-08-28] MEDS ORDERED: Vancomycin 1,750 MG in 0.9 % Sodium Chloride 250 ML IVPB ONE (15:11)
[2018-08-28] MEDS: 0.9 % Sodium Chloride 1,000 ML IVC SCH ×3 (15:34→20:33)
[2018-08-28 15:42] LABS: Basophils % 0.3 %; Eosinophils # 0.2 K/mcL (0.0-0.6); Eosinophils % 2.1 %; Hematocrit 33.9 % (37.5-50.1); Immature Granulocytes % 0.4 % (0-4); Lymphocytes # 1.4 K/mcL (0.6-4.6); Lymphocytes % 18.1 %; Mean Corpuscular HGB Conc 35.4 g/dL (31.6-35.5); Mean Corpuscular Hemoglobin 31.3 pg (28.0-33.3); Mean Corpuscular Volume 88.3 fL (83.0-100.0); Mean Platelet Volume 8.8 fL (9.4-12.4); Monocytes # 0.9 K/mcL (0.0-1.3); Monocytes % 11.7 %; Neutrophils # 5.1 K/mcL (1.6-8.9); Platelet Count 211 K/mcL (140-400); Red Blood Count 3.84 M/mcL (4.19-5.50); Red Cell Distribution Width 11.9 % (11.5-14.5); Segmented Neutrophils % 67.4 %
[2018-08-28 15:50] LABS: INR 1.6; Prothrombin Time 17.5 Seconds (9.4-12.1)
--- NOTE | 2018-08-28 16:01 | Emergency Department Note ---
Disposition Clinical Impression: Puncture wound Cellulitis Qualifiers: Site of cellulitis: extremity Site of cellulitis of extremity: lower extremity Laterality: right Qualified Code(s): L03.115 - Cellulitis of right lower limb Disposition: Admitted As Inpatient Referrals: Maria T Rueda [Primary Care Provider] - Forms: ED Satisfaction Letter General Adult HPI - General Chief complaint: ED Extremity Problem,Nontraumatic Stated complaint: RLE "Infection" Time Seen by Provider: 08/28/18 14:47 Source: patient Mode of arrival: ambulatory Limitations: no limitations - History of Present Illness Pain Scale: 10 - Related Data Home Medications Medication Instructions Recorded Confirmed Lisinopril/Hydrochlorothiazide 1 tab PO DAILY 03/27/17 06/17/17 [Zestoretic 10-12.5 mg Tablet] Sertraline [Zoloft] 150 mg PO DAILY 03/27/17 06/17/17 Tamsulosin [Flomax] 0.4 mg PO DAILY 03/27/17 06/17/17 Pregabalin [Lyrica] 100 mg PO BID 06/16/17 06/17/17 Previous Rx's Medication Instructions Recorded Apixaban [Eliquis] 5 mg PO BID #30 tablet 06/17/17 Aspirin Enteric Coated [Aspirin EC] 81 mg PO DAILY tablet. 06/20/17 Diltiazem CD (24hr) [Cardizem CD] 120 mg PO DAILY #30 cap.er.24h 06/20/17 Doxycycline 100 mg PO BID #14 capsule 06/20/17 Silvasorb 1 appl TP DAILY tube 06/20/17 Cefdinir [Omnicef] 300 mg PO BID #14 capsule 10/20/17 Hydrocodone/Acetaminophen 1 each PO TID PRN 2 Days #6 tablet 10/20/17 [Hydrocodon-Acetaminophen 5-325] predniSONE [Prednisone] 40 mg PO DAILY #3 tablet 10/20/17 Allergies Allergy/AdvReac Type Severity Reaction Status Date / Time codeine Allergy Difficulty Verified 10/20/17 16:35 Breathing morphine Allergy Difficulty Verified 10/20/17 16:35 Breathing Constitutional: Reports: fever Cardiovascular: Reports: chest pain Respiratory: Denies: cough, dyspnea Gastrointestinal: Denies: abdominal pain, nausea, vomiting Musculoskeletal: Denies: back pain Past Medical History - Past Medical History Medical history: Reports: COPD, GERD, hypertension, other Surgical history: Reports: appendectomy Psychiatric history: Reports: anxiety, depression - Social History Smoking Status: Current every day smoker Smokeless Tobacco Status: No Alcohol use: Reports: occasionally Drug use: Reports: marijuana, methamphetamine Physical Exam - General Limitations: no limitations General appearance: alert, in no apparent distress, other (Poor hygiene) Course Vital Signs Temperature 98.2 F 08/28/18 14:40 Pulse Rate 93 08/28/18 14:40 Respiratory Rate 16 08/28/18 14:40 Blood Pressure 120/79 08/28/18 14:40 O2 Sat by Pulse Oximetry 100 08/28/18 14:40 Temperature 98.2 F 08/28/18 14:40 Pulse Rate 93 08/28/18 14:40 Respiratory Rate 16 08/28/18 14:40 Blood Pressure 120/79 08/28/18 14:40 O2 Sat by Pulse Oximetry 100 08/28/18 14:40 Oxygen Delivery Oxygen Delivery Room Air Medical Decision Making - Lab Data Result diagrams: 08/28/18 15:25 Lab Results 08/28/18 08/28/18 08/28/18 Range/Units 15:25 15:25 15:25 WBC 7.5 (4.3-11.1) K/mcL RBC 3.84 L (4.19-5.50) M/mcL Hgb 12.0 L (12.9-16.9) g/dL Hct 33.9 L (37.5-50.1) % MCV 88.3 (83.0-100.0) fL MCH 31.3 (28.0-33.3) pg MCHC 35.4 (31.6-35.5) g/dL RDW 11.9 (11.5-14.5) % Plt Count 211 (140-400) K/mcL MPV 8.8 L (9.4-12.4) fL Immature Gran % 0.4 (0-4) % Seg Neutrophils % 67.4 % Lymphocytes % 18.1 % Monocytes % 11.7 % Eosinophils % 2.1 % Basophils % 0.3 % Neutrophils # 5.1 (1.6-8.9) K/mcL Lymphocytes # 1.4 (0.6-4.6) K/mcL Monocytes # 0.9 (0.0-1.3) K/mcL Eosinophils # 0.2 (0.0-0.6) K/mcL Basophils # 0.0 (0.0-0.2) K/mcL ESR 57 H (0-10) mm/hr PT (9.4-12.1) Seconds INR Lactic Acid 1.0 (0.5-2.2) mmol/L 08/28/18 Range/Units 15:25 WBC (4.3-11.1) K/mcL RBC (4.19-5.50) M/mcL Hgb (12.9-16.9) g/dL Hct (37.5-50.1) % MCV (83.0-100.0) fL MCH (28.0-33.3) pg MCHC (31.6-35.5) g/dL RDW (11.5-14.5) % Plt Count (140-400) K/mcL MPV (9.4-12.4) fL Immature Gran % (0-4) % Seg Neutrophils % % Lymphocytes % % Monocytes % % Eosinophils % % Basophils % % Neutrophils # (1.6-8.9) K/mcL Lymphocytes # (0.6-4.6) K/mcL Monocytes # (0.0-1.3) K/mcL Eosinophils # (0.0-0.6) K/mcL Basophils # (0.0-0.2) K/mcL ESR (0-10) mm/hr PT 17.5 H (9.4-12.1) Seconds INR 1.6 Lactic Acid (0.5-2.2) mmol/L Attestation Statement - Attestation Attestation: I examined this patient and my medical decision-making was reviewed with the Resident Physician. I agree with the documented findings, disposition and treatment plan as described except to the extent set forth below. 48 year old male presents to the ED with complaints of RLE infection and states tht he has a fetish to pull out his toenails and tried to moreno his big toenail and hiw RLE is increasingly more swollen with erythematous changes and lymphangitis up to leg. My concerns are for osteo vs nec fasc vs DVt. He is rel unctuant to stay but I have spent about 10-15 minutes at length trying to explain to him the his limb ad life are at risk for loss. He is concernd for his mother who is elderly and frail at home. He is currenlty willing to stay for 3- 4 hours to recieve ANTIbotics, and will try to find someone to care for his motehr at home. Dandre does not appaer to understand the gravity of his situation and the risk he is at severe sepsis and possible loss of limb
[2018-08-28 16:02] LABS: Alanine Aminotransferase 11 Units/L (7-52); Albumin 3.6 g/dL (3.5-5.7); Albumin/Globulin Ratio 1.1 (1.1-2.2); Alkaline Phosphatase 66 Units/L (34-104); Aspartate Amino Transferase 11 Units/L (13-39); BUN/Creatinine Ratio 18 (6-26); Bilirubin,Total 0.9 mg/dL (0.3-1.0); Blood Urea Nitrogen 10 mg/dL (6-20); Calcium 9.2 mg/dL (8.6-10.3); Carbon Dioxide 26 mEq/L (23-29); Chloride 99 mEq/L (98-107); Globulin 3.2 g/dL (2.4-3.5); Glucose 107 mg/dL (70-105); Osmolality,Calculated 272 (280-300); Potassium 3.3 mEq/L (3.5-5.1); Sodium 131 mEq/L (136-145); Total Protein 6.8 g/dL (6.4-8.9); Troponin I < 0.03 ng/mL (< 0.04); eGFR For Non-African Americans > 60 (> 60)
[2018-08-28] MEDS ORDERED: Naloxone 0.4 MG/ML INJ IVP PRN (18:10)
[2018-08-28] MEDS ORDERED: Acetaminophen 325 MG TABLET PO PRN (18:10)
[2018-08-28] MEDS ORDERED: Tdap (Boostrix) Vaccine 0.5 ML SYRINGE IM ONE (18:25)
--- NOTE | 2018-08-28 18:37 | Internal Med History&Physical ---
Date of Encounter: 08/28/18 Time of Encounter: 18:26 Internal Medicine - H&P: HPI Chief complaint: Puncture wound Admitted From: Emergency Dept Plans for Post Hospital Care: Home History of present illness: Mr. Reyes is a 48 year old male past medical history of methamphetamine use as well as atrial fibrillation and COPD-patient is not very cooperative during assessment most of information has been obtained from medical records and ER staff. According to ER records patient states that he has a therapist with pulling out his toenails and that he has been experiencing redness and pain to his right toe for approximately 8 days. He does swelling and redness to right foot and noted streaking up his leg. He does admit to fevers stating that his temperatures proximally 101. Denies any nausea or vomiting. Also noted a puncture wound to his great toe which she states has been there for approximately mammography attempted to pierces toe. Denies any history of diabetes or IV drug use but admitted to snorting methamphetamines. Work does not show any leukocytosis ESR was 57 CRP was 129 take was 1 he did have some hyponatremia and hypokalemia cultures were obtained he was given vancomycin and Zosyn CT of right leg does show ulceration of the distal great toe with gas exchange the level of the bone. No CT evidence of osteomyelitis is detected at this time. Along the plantar and medial aspect of the great toe there is a focal fluid and/or necrosis E's measuring approximate 1.7 cm. That is in a very superficial location. More proximally within the lower extremity circumferential edema is present especially medially was compatible with cellulitis/fasciitis. No soft tissue gas or drainable fluid collections found more proximal. Linear metallic foreign body within the plantar soft tissue at the level of the distal fourth metatarsal. Podiatry was consulted per ER physician. Patient has been admitted for further workup and evaluation. Upon my assessment patient is not cooperative with assessment he is sleeping during the assessment and will not answer questions. when asked what happened to his foot he states that he injured it playing softball, I questioned him concerning this answer since it is currently 20 degrees outside he states that "you can play softball in the winter". Advised the patient that he will be admitted receiving IV antibiotics and will be seen by podiatry. Patient verbalized understanding currently denies any pain or discomfort and is hemodynamically stable Past Med Surg Social Fam HX - Past Medical History Medical history: COPD, GERD, hypertension, other Additional medical history: chronic back pain Psychiatric history: anxiety, depression - Past Surgical History Surgical History: appendectomy Additional surgical history: Back Sx x3, Knee Sx x6 (3 each) - Social History Smoking Status: Current every day smoker Smokeless Tobacco Status: No Alcohol use: occasionally Drug use: marijuana, methamphetamine Internal Medicine - H&P: Meds Lisinopril/Hydrochlorothiazide [Zestoretic 10-12.5 mg Tablet] 1 tab PO DAILY 03/27/17 [History] Sertraline [Zoloft] 150 mg PO DAILY 03/27/17 [History] Tamsulosin [Flomax] 0.4 mg PO DAILY 03/27/17 [History] Pregabalin [Lyrica] 100 mg PO BID 06/16/17 [History] Apixaban [Eliquis] 5 mg PO BID #30 tablet 06/17/17 [Rx] Aspirin Enteric Coated [Aspirin EC] 81 mg PO DAILY tablet. 06/20/17 [Rx] Diltiazem CD (24hr) [Cardizem CD] 120 mg PO DAILY #30 cap.er.24h 06/20/17 [Rx] Doxycycline 100 mg PO BID #14 capsule 06/20/17 [Rx] Silvasorb 1 appl TP DAILY tube 06/20/17 [Rx] Cefdinir [Omnicef] 300 mg PO BID #14 capsule 10/20/17 [Rx] Hydrocodone/Acetaminophen [Hydrocodon-Acetaminophen 5-325] 1 each PO TID PRN 2 Days #6 tablet 10/20/17 [Rx] predniSONE [Prednisone] 40 mg PO DAILY #3 tablet 10/20/17 [Rx] Allergy/AdvReac Type Severity Reaction Status Date / Time codeine Allergy Difficulty Verified 10/20/17 16:35 Breathing morphine Allergy Difficulty Verified 10/20/17 16:35 Breathing ROS unobtainable: other (Patient is not cooperative) All Systems PM: A 10-system review of systems was performed and is negative for pertinent findings except as documented above in the HPI. - Constitutional Vitals: Temp Pulse Resp BP Pulse Ox 98.2 F 93 16 120/79 100 08/28/18 14:40 08/28/18 14:40 08/28/18 14:40 08/28/18 14:40 08/28/18 14:40 General appearance: Present: A&O X 3 Exam: . - Head Head exam: Present: atraumatic, normocephalic - Eye Eye exam: Present: PERRL, conjuntiva pink, sclera anicteric Pupils: Present: PERRL - Neck Neck exam general surgery: Present: supple, trachea midline. Absent: lymphadenopathy - Respiratory Respiratory exam: Present: CTAB. Absent: accessory muscle use, rales, rhonchi, wheezes - Cardiovascular Cardiovascular exam: Present: RRR, +S1, +S2. Absent: diastolic murmur, gallop, rubs, systolic murmur - GI/Abdominal GI/Abdominal exam: Present: normal bowel sounds, soft, no peritoneal signs. Absent: distended, tenderness - Extremities Exam Extremities exam: Present: warm, radial pulses palpable and symmetrical. Absent: calf tenderness, cyanotic, pedal edema - Expanded Lower Extremities Exam Lower Leg exam: Present: erythema, swelling (Right foot is swollen, right great toe is red toenail is missing there is a ulcer distal great toe with brown drainage), tenderness Internal Med - H&P Results - Labs CBC & Chem 7: 08/28/18 15:25 08/28/18 15:25 Labs: Short CBC 08/28/18 Range/Units 15:25 WBC 7.5 (4.3-11.1) K/mcL Hgb 12.0 L (12.9-16.9) g/dL Hct 33.9 L (37.5-50.1) % Plt Count 211 (140-400) K/mcL Neutrophils # 5.1 (1.6-8.9) K/mcL BMP 08/28/18 15:25 Sodium 131 L Potassium 3.3 L Chloride 99 Carbon Dioxide 26 BUN 10 Creatinine 0.57 L Glucose 107 H Calcium 9.2 Cardiac Enzymes 08/28/18 Range/Units 15:25 Troponin I < 0.03 (< 0.04) ng/mL Liver Function 08/28/18 Range/Units 15:25 Total Bilirubin 0.9 (0.3-1.0) mg/dL AST 11 L (13-39) Units/L ALT 11 (7-52) Units/L Alkaline Phosphatase 66 (34-104) Units/L Albumin 3.6 (3.5-5.7) g/dL - Impressions ITS Impressions Chest X-Ray 08/28/18 15:10 IMPRESSION: No acute findings. D/ / Yazan Huerta MD / Yazan Huerta MD Interpreting Provider: Yazan Huerta MD Lower Extremity CT 08/28/18 15:10 IMPRESSION: Ulceration of the distal great toe, with gas extending to the level of the bone. No CT evidence of osteomyelitis is detected at this time. Along the plantar and medial aspect of the great toe, there is focal fluid and or necrosis, measuring approximately 1.7 cm maximally. That is in a very superficial location, and therefore correlate clinically. More proximally within the lower extremity, circumferential edema is present, especially medially, most compatible with cellulitis/fasciitis. No soft tissue gas or drainable fluid collection is found more proximally. Linear metallic foreign body within the plantar soft tissues at the level the distal 4th metatarsal. D/ / Casper Jay MD / Casper Jay MD Interpreting Provider: Casper Jay MD - Diagnostic Studies Other Images Additional comments: Chest X-Ray 08/28/18 15:10 IMPRESSION: No acute findings. D/ / Yazan Huerta MD / Yazan Huerta MD Interpreting Provider: Yaazn Huerta MD Lower Extremity CT 08/28/18 15:10 IMPRESSION: Ulceration of the distal great toe, with gas extending to the level of the bone. No CT evidence of osteomyelitis is detected at this time. Along the plantar and medial aspect of the great toe, there is focal fluid and or necrosis, measuring approximately 1.7 cm maximally. That is in a very superficial location, and therefore correlate clinically. More proximally within the lower extremity, circumferential edema is present, especially medially, most compatible with cellulitis/fasciitis. No soft tissue gas or drainable fluid collection is found more proximally. Linear metallic foreign body within the plantar soft tissues at the level the distal 4th metatarsal. D/ / Casper Jay MD / Casper Jay MD Interpreting Provider: Casper Jay MD - Assessment and plan (1) Substance abuse Current Visit: Yes Status: Acute Assessment and plan: Patient denies IV drug use however does admit to methamphetamines We will obtain a tox screen (2) Fasciitis Current Visit: Yes Status: Acute Assessment and plan: CT of right leg Ulceration of the distal great toe, with gas extending to the level of the bone. No CT evidence of osteomyelitis is detected at this time. Along the plantar and medial aspect of the great toe, there is focal fluid and or necrosis, measuring approximately 1.7 cm maximally. That is in a very superficial location, and therefore correlate clinically. More proximally within the lower extremity, circumferential edema is present, especially medially, most compatible with cellulitis/fasciitis. No soft tissue gas or drainable fluid collection is found more proximally. Linear metallic foreign body within the plantar soft tissues at the level the distal 4th metatarsal. Tetanus booster was given Extract Operator consulted Nothing by mouth after midnight (3) Cellulitis Current Visit: Yes Status: Acute Assessment and plan: 1 presented with right foot and toe inflammation as well as fever and streaking up the right leg. Patient attempted to remove his own toenail as well as attempt to Fox his toe. No leukocytosis currently afebrile CT Ulceration of the distal great toe, with gas extending to the level of the bone. No CT evidence of osteomyelitis is detected at this time. Along the plantar and medial aspect of the great toe, there is focal fluid and or necrosis, measuring approximately 1.7 cm maximally. That is in a very superficial location, and therefore correlate clinically. More proximally within the lower extremity, circumferential edema is present, especially medially, most compatible with cellulitis/fasciitis. No soft tissue gas or drainable fluid collection is found more proximally. Linear metallic foreign body within the plantar soft tissues at the level the distal 4th metatarsal. Started on vancomycin and Zosyn Podiatry has been consult Qualifiers: Site of cellulitis: extremity Site of cellulitis of extremity: lower extremity Laterality: right Qualified Code(s): L03.115 - Cellulitis of right lower limb (4) Atrial fibrillation Current Visit: No Status: Chronic Assessment and plan: She has a history of atrial fibrillation-states he is not on any anticoagulation-we will resume home medications once med rec is verified Cardiac monitoring Qualifiers: Atrial fibrillation type: unspecified Qualified Code(s): I48.91 - Unspecified atrial fibrillation (5) Puncture wound Current Visit: Yes Status: Acute Assessment and plan: Patient attempted to Fox's toe Ulceration of the distal great toe, with gas extending to the level of the bone. No CT evidence of osteomyelitis is detected at this time. Along the plantar and medial aspect of the great toe, there is focal fluid and or necrosis, measuring approximately 1.7 cm maximally. That is in a very superficial location, and therefore correlate clinically. More proximally within the lower extremity, circumferential edema is present, especially medially, most compatible with cellulitis/fasciitis. No soft tissue gas or drainable fluid collection is found more proximally. Linear metallic foreign body within the plantar soft tissues at the level the distal 4th metatarsal. Tetanus booster given Podiatry consulted (6) DVT prophylaxis Current Visit: Yes Status: Acute Assessment and plan: SCD - Time Spent With Patient Total time spent is greater than 50% in coordination of care (as documented) at patient's floor/unit and/or counseling patient:
[2018-08-28] MEDS: Ketorolac 15 MG/ML VIAL IVP PRN (20:36)
--- NOTE | 2018-08-28 20:58 | Event Note ---
Date of Encounter: 08/28/18 Time of Encounter: 20:50 In the process of having the pts. nurse reconcile his home medications, I instructed the nurse to find out when the pt. took all of his home meds last. Pt. reports that he only takes Flomax as a home med now. Pt. stated that he was given Eliquis as a one-time Rx and it was never refilled. He stated the same was true for his Cardizem. Will monitor pts. BP and VS to assess for HTN and HR changes and will order medications as warranted for these. Nurse instructed to monitor the pt. closely and alert me immediately of any adverse changes.
[2018-08-28 22:51] LABS: Amphetamine Screen,Urine Positive ng/mL (Cutoff=1000); Barbiturate Screen,Urine Negative ng/mL (Cutoff=200); Benzodiazepines Screen,Urine Negative ng/mL (Cutoff=200); Cannabinoid Screen,Urine Positive ng/mL (Cutoff = 50); Cocaine Screen,Urine Negative ng/mL (Cutoff= 300); Opiate Screen,Urine Negative ng/mL (Cutoff=300); Phencyclidine Screen,Urine Negative ng/mL (Cutoff=25)
[2018-08-28] MEDS: Piperacillin/Tazobactam 3.375 GM in 0.9 % Sodium Chloride Mini Bag 100 ML IVPB SCH (23:38)
[2018-08-29 04:46] LABS: Basophils % 0.2 %; Eosinophils # 0.2 K/mcL (0.0-0.6); Eosinophils % 2.4 %; Hematocrit 32.7 % (37.5-50.1); Hemoglobin 11.3 g/dL (12.9-16.9); Immature Granulocytes % 0.2 % (0-4); Lymphocytes # 0.9 K/mcL (0.6-4.6); Lymphocytes % 11.1 %; Mean Corpuscular HGB Conc 34.6 g/dL (31.6-35.5); Mean Corpuscular Hemoglobin 31.1 pg (28.0-33.3); Mean Corpuscular Volume 90.1 fL (83.0-100.0); Mean Platelet Volume 8.8 fL (9.4-12.4); Monocytes # 0.8 K/mcL (0.0-1.3); Monocytes % 9.5 %; Neutrophils # 6.4 K/mcL (1.6-8.9); Platelet Count 205 K/mcL (140-400); Red Blood Count 3.63 M/mcL (4.19-5.50); Red Cell Distribution Width 12.2 % (11.5-14.5); Segmented Neutrophils % 76.6 %
[2018-08-29 05:03] LABS: BUN/Creatinine Ratio 18 (6-26); Blood Urea Nitrogen 10 mg/dL (6-20); Calcium 8.7 mg/dL (8.6-10.3); Carbon Dioxide 23 mEq/L (23-29); Chloride 108 mEq/L (98-107); Glucose 110 mg/dL (70-105); Magnesium 1.9 mg/dL (1.6-2.6); Osmolality,Calculated 282 (280-300); Potassium 3.8 mEq/L (3.5-5.1); Sodium 136 mEq/L (136-145); eGFR For Non-African Americans > 60 (> 60)
[2018-08-29] MEDS: 0.9 % Sodium Chloride 1,000 ML IVC SCH ×2 (06:28→08:42)
[2018-08-29] MEDS: Ketorolac 15 MG/ML VIAL IVP PRN (06:28)
[2018-08-29] MEDS: Piperacillin/Tazobactam 3.375 GM in 0.9 % Sodium Chloride Mini Bag 100 ML IVPB SCH (08:41)
--- NOTE | 2018-08-29 11:01 | Internal Med Progress Note ---
Hospitalist Progress Note - Encounter Date of Encounter: 08/29/18 Time of Encounter: 09:45 - Subjective Interval History: H&P reviewed. Patient with history of atrial fibrillation, substance abuse, COPD, is admitted for right LE cellulitis ?abscess along the medial aspect of R 1st toe. Associated with elevated ESR/CRP. No fever/chills, N/V, or worsening R LE pain. Awaiting for podiatry eval. - Exam Vitals: Temp Pulse Resp BP Pulse Ox 98.9 F 85 14 125/67 98 08/29/18 05:49 08/29/18 05:49 08/29/18 05:49 08/29/18 05:49 08/29/18 05:49 Exam: General: Alert and oriented, not in acute distress. Cardiovascular:Normal S1 & S2, No JVD. Pulse regular. Lungs: clear to auscultation, no wheezes/rales Abdomen:Soft, non-tender, no rigidity. Extremities: Generalized swelling of the R foot and ankle noted, focal area of tenderness on the medial aspect of R 1st toe. Neurovascularly intact distally. - Assessment and Plan (1) Cellulitis Current Visit: Yes Status: Acute Assessment and Plan: Redness, pain along the R foot/distal ross following an attempt to remove his own toenail as well as attempt to moreno his toe. CT showed ulceration with gas extending to the level of the bone on distal great toe. Also showed focal fluid +/- necrosis along the plantar/medial aspect of the great toe normal WBC but elevated ESR/CRP started on vanc/zosyn, continue received Tdap already NPO for possible intervention, awaiting podiatry input follow up on blood cultures (2) Atrial fibrillation Current Visit: No Status: Chronic Assessment and Plan: resume home meds once reconciled hold off on eliquis in anticipation for procedure (3) Substance abuse Current Visit: Yes Status: Acute Assessment and Plan: +ve for amphetamine and marijuana SW consult (4) COPD (chronic obstructive pulmonary disease) Current Visit: Yes Status: Chronic Assessment and Plan: reported history of COPD but unsure which inhaler he is on not in exacerbation PRN duoneb (5) DVT prophylaxis Current Visit: Yes Status: Acute Assessment and Plan: SCD - Time Spent with Patient Total time spent is greater than 50% in coordination of care (as documented) at patient's floor/unit and/or counseling patient: Plan of Care Discussed with: patient Internal Medicine: Result - Labs CBC & Chem 7: 08/29/18 04:28 08/29/18 04:28 Labs: Short CBC 08/28/18 08/29/18 Range/Units 15:25 04:28 WBC 7.5 8.3 (4.3-11.1) K/mcL Hgb 12.0 L 11.3 L (12.9-16.9) g/dL Hct 33.9 L 32.7 L (37.5-50.1) % Plt Count 211 205 (140-400) K/mcL Neutrophils # 5.1 6.4 (1.6-8.9) K/mcL BMP 08/28/18 08/29/18 15:25 04:28 Sodium 131 L 136 Potassium 3.3 L 3.8 Chloride 99 108 H Carbon Dioxide 26 23 BUN 10 10 Creatinine 0.57 L 0.56 L Glucose 107 H 110 H Calcium 9.2 8.7 Cardiac Enzymes 08/28/18 Range/Units 15:25 Troponin I < 0.03 (< 0.04) ng/mL Liver Function 08/28/18 Range/Units 15:25 Total Bilirubin 0.9 (0.3-1.0) mg/dL AST 11 L (13-39) Units/L ALT 11 (7-52) Units/L Alkaline Phosphatase 66 (34-104) Units/L Albumin 3.6 (3.5-5.7) g/dL - ABG Interpretation ABG results: PT/INR, D-dimer PT 17.5 Seconds (9.4-12.1) H 08/28/18 15:25 - Impressions Impressions Chest X-Ray 08/28/18 15:10 IMPRESSION: No acute findings. D/ / Yazan Huerta MD / Yazan Huerta MD Interpreting Provider: Yazan Huerta MD Lower Extremity CT 08/28/18 15:10 IMPRESSION: Ulceration of the distal great toe, with gas extending to the level of the bone. No CT evidence of osteomyelitis is detected at this time. Along the plantar and medial aspect of the great toe, there is focal fluid and or necrosis, measuring approximately 1.7 cm maximally. That is in a very superficial location, and therefore correlate clinically. More proximally within the lower extremity, circumferential edema is present, especially medially, most compatible with cellulitis/fasciitis. No soft tissue gas or drainable fluid collection is found more proximally. Linear metallic foreign body within the plantar soft tissues at the level the distal 4th metatarsal. D/ / Casper Jay MD / Casper Jay MD Interpreting Provider: Casper Jay MD Consult Discharge Plan - Plan Referrals: Maria T Rueda [Primary Care Provider] - (1) Cellulitis Qualifiers: Site of cellulitis: extremity Site of cellulitis of extremity: lower extremity Laterality: right Qualified Code(s): L03.115 - Cellulitis of right lower limb (2) Atrial fibrillation Qualifiers: Atrial fibrillation type: unspecified Qualified Code(s): I48.91 - Unspecified atrial fibrillation (4) COPD (chronic obstructive pulmonary disease) Qualifiers: COPD type: unspecified COPD Qualified Code(s): J44.9 - Chronic obstructive pulmonary disease, unspecified
[2018-08-29] MEDS ORDERED: Ketorolac 30 MG/ML VIAL IVP PRN (11:06)
[2018-08-29] MEDS ORDERED: Ipratropium/Albuterol Neb 3 ML IH PRN (11:07)
[2018-08-29 11:28] VITALS: BP 118/70
--- NOTE | 2018-08-29 13:20 | Discharge Summary ---
- NOTES TO OUTPATIENT PROVIDER Notes to Outpatient Provider: Patient with history of substance abuse was admitted for right first toe cellulitis ?abscess. Was treated with IV abx and while waiting for podiatry evaluation to be done, he left AMA as he "did not want to wait any longer". Before I could offer him at least PO abx, pt left the floor. Orders not resulted at time of discharge: Pending orders 08/28/18 15:25 Culture,Blood [BC] Stat 08/29/18 06:00 ECG 12 lead ECG [ECG] AM 0600 Date of Encounter: 08/29/18 Time of Encounter: 13:00 - Discharge Diagnosis (1) Cellulitis Priority: Primary Status: Acute Qualifiers: Site of cellulitis: extremity Site of cellulitis of extremity: lower extremity Laterality: right Qualified Code(s): L03.115 - Cellulitis of right lower limb (2) Atrial fibrillation Priority: Secondary Status: Chronic Qualifiers: Atrial fibrillation type: unspecified Qualified Code(s): I48.91 - Unspecified atrial fibrillation (3) Substance abuse Priority: Secondary Status: Acute (4) COPD (chronic obstructive pulmonary disease) Priority: Secondary Status: Chronic Qualifiers: COPD type: unspecified COPD Qualified Code(s): J44.9 - Chronic obstructive pulmonary disease, unspecified (5) DVT prophylaxis Priority: Secondary Status: Acute Hospital course: Mr. Reyes is a 48 year old male with history of substance abuse who was admitted for right first toe cellulitis ?abscess. Was treated with IV abx and while waiting for podiatry evaluation to be done, he left AMA as he "did not want to wait any longer". Before I could offer him at least PO abx, pt left the floor. - Time Spent with Patient Total time spent providing and/or coordinating discharge services: - Discharge Medications Home Medications: Lisinopril/Hydrochlorothiazide [Zestoretic 10-12.5 mg Tablet] 1 tab PO DAILY 03/27/17 [History] Sertraline [Zoloft] 150 mg PO DAILY 03/27/17 [History] Tamsulosin [Flomax] 0.4 mg PO DAILY 03/27/17 [History] Pregabalin [Lyrica] 100 mg PO BID 06/16/17 [History] Apixaban [Eliquis] 5 mg PO BID #30 tablet 06/17/17 [Rx] Aspirin Enteric Coated [Aspirin EC] 81 mg PO DAILY tablet. 06/20/17 [Rx] Diltiazem CD (24hr) [Cardizem CD] 120 mg PO DAILY #30 cap.er.24h 06/20/17 [Rx] Doxycycline 100 mg PO BID #14 capsule 06/20/17 [Rx] Silvasorb 1 appl TP DAILY tube 06/20/17 [Rx] Cefdinir [Omnicef] 300 mg PO BID #14 capsule 10/20/17 [Rx] Hydrocodone/Acetaminophen [Hydrocodon-Acetaminophen 5-325] 1 each PO TID PRN 2 Days #6 tablet 10/20/17 [Rx] predniSONE [Prednisone] 40 mg PO DAILY #3 tablet 10/20/17 [Rx] Allergies/Adverse Reactions: Allergy/AdvReac Type Severity Reaction Status Date / Time codeine Allergy Difficulty Verified 10/20/17 16:35 Breathing morphine Allergy Difficulty Verified 10/20/17 16:35 Breathing Date of admission: 08/28/18 18:10 Primary care physician: Maria T Rueda Consults: 08/28/18 17:40 Consult to Podiatry [CONS] Stat Consulting Provider: Podiatry [facility] Reason for Consult: R great toe cellulitis, Ulceration of toe Call Completed: Yes 08/29/18 11:05 Consult to Industrial Chemicals Supervisor [CONS] Routine Reason for SW Consult: drug abuse - Constitutional Vitals: Temp Pulse Resp BP Pulse Ox 97.9 F 83 16 118/70 100 08/29/18 11:14 08/29/18 11:14 08/29/18 11:14 08/29/18 11:14 08/29/18 11:14 General appearance: Present: A&O X 3 Exam: General: Alert and oriented, not in acute distress. Cardiovascular:Normal S1 & S2, No JVD. Pulse regular. Lungs: clear to auscultation, no wheezes/rales Abdomen:Soft, non-tender, no rigidity. Extremities: Generalized swelling of the R foot and ankle noted, focal area of tenderness on the medial aspect of R 1st toe. Neurovascularly intact distally. - Patient Status Disposition: Left Against Medical Advice Condition: Fair - Discharge Instructions Instructions: Cellulitis (DC), Atrial Fibrillation (DC) Follow Up With: Maria T Rueda [Primary Care Provider] -
[2018-08-29] MEDS ORDERED: Vancomycin 1,750 MG in 0.9 % Sodium Chloride 250 ML IVPB SCH (19:00)
--- NOTE | 2018-08-30 05:31 | Electrocardiograph Report ---
[facility] Test Date: 2018-08-28 Pat Name: Matt Reyes Department: EXAM1 Room: 3A36 Gender: M [employer]: : 1970 Requested By: Jose Gonzalez Order Number: [id number] Reading MD: Saulo Leon Measurements Intervals [place] Rate: 78 P: 70 NM: 185 QRS: 68 QRSD: 127 T: 32 QT: 394 QTc: 449 Interpretive Statements Sinus rhythm Ventricular premature complex IVCD, consider atypical RBBB Probable anterolateral infarct, old Electronically Signed On 08-30-2018 5:30:11 EST by Saulo Leon
== END 2018-08-29 12:56 | disposition left against medical advice (07) | DRG 383 ==
LOC: EMEROOARM 14:38 → 3ANU 14:38 → SUATTDRO 18:10 → 3ANU 18:32
PROVIDERS: ADMIT Student in an Organized Health Care Education/Training Program; ATTEND Internal Medicine

== ENCOUNTER 2020-03-20 13:07 | Inpatient (IN) ==
[2020-03-20 13:44] LABS: Basophils % 0.1 %; Hematocrit 38.2 % (37.5-50.1); Immature Granulocytes % 0.5 % (0-4); Lymphocytes # 0.5 K/mcL (0.6-4.6); Mean Corpuscular Hemoglobin 30.5 pg (28.0-33.3); Mean Corpuscular Volume 89.7 fL (83.0-100.0); Mean Platelet Volume 9.4 fL (9.4-12.4); Platelet Count 200 K/mcL (140-400); Red Blood Count 4.26 M/mcL (4.19-5.50); Red Cell Distribution Width 12.3 % (11.5-14.5); Segmented Neutrophils % 90.4 %
[2020-03-20 13:47] LABS: Neutrophils # 14.6 K/mcL (1.6-8.9); White Blood Count 16.1 K/mcL (4.3-11.1)
[2020-03-20 14:01] LABS: BUN/Creatinine Ratio 30 (6-26); Blood Urea Nitrogen 21 mg/dL (6-20); C-Reactive Protein 182 mg/L (Less than 10); Calcium 9.6 mg/dL (8.6-10.3); Carbon Dioxide 23 mEq/L (23-29); Chloride 102 mEq/L (98-107); Glucose 179 mg/dL (70-105); Osmolality,Calculated 287 (280-300); Potassium 3.8 mEq/L (3.5-5.1); Sodium 135 mEq/L (136-145); eGFR For African Americans > 60 (> 60); eGFR For Non-African Americans > 60 (> 60)
[2020-03-20] MEDS ORDERED: Piperacillin/Tazobactam 3.375 GM in 0.9 % Sodium Chloride Mini Bag 100 ML IVPB ONE (14:19)
[2020-03-20] MEDS ORDERED: Vancomycin 1,750 MG/517.5 ML IV.SOLN IVPB ONE (14:19)
[2020-03-20] MEDS ORDERED: 0.9 % Sodium Chloride 1,000 ML IVC ONE (14:21)
[2020-03-20] MEDS ORDERED: Ondansetron 4 MG/2 ML VIAL IVP PRN (14:44)
[2020-03-20] MEDS ORDERED: Naloxone 0.4 MG/ML INJ IVP PRN (14:44)
[2020-03-20] MEDS ORDERED: Ketorolac 30 MG/ML VIAL IVP PRN (14:48)
[2020-03-20] MEDS ORDERED: Dextrose Gel 15 GM/37.5 ML TUBE PO PRN ×2 (14:49)
[2020-03-20] MEDS ORDERED: D5% in Water 1,000 ML IVC PRN (14:49)
[2020-03-20] MEDS ORDERED: *HR* Dextrose 50 % in Water (Vial) 50 ML VIAL IVP PRN (14:49)
[2020-03-20] MEDS ORDERED: Ipratropium/Albuterol Neb 3 ML IH PRN (14:51)
[2020-03-20] MEDS ORDERED: Gadolinium Contrast Agent (WT Based) IV PRN ×2 (15:16→15:20)
[2020-03-20] MEDS ORDERED: Isovue-370 500 ML BOTTLE IVP ONE (16:03)
[2020-03-20] MEDS: Insulin LISPRO 300 UNITS/3 ML VIAL SQ SCH (17:57)
[2020-03-20] MEDS: Ringers Solution, Lactated 1,000 ML IVC SCH (17:58)
[2020-03-20] MEDS: Piperacillin/Tazobactam 3.375 GM in 0.9 % Sodium Chloride Mini Bag 100 ML IVPB SCH (22:27)
[2020-03-21] MEDS: Vancomycin 1,500 MG/265 ML IV.SOLN IVPB SCH ×2 (02:51→15:28)
[2020-03-21] MEDS: Piperacillin/Tazobactam 3.375 GM in 0.9 % Sodium Chloride Mini Bag 100 ML IVPB SCH ×3 (05:28→22:39)
[2020-03-21 05:38] LABS: Basophils % 0.1 %; Eosinophils # 0.1 K/mcL (0.0-0.6); Eosinophils % 0.5 %; Hematocrit 36.3 % (37.5-50.1); Immature Granulocytes % 0.6 % (0-4); Lymphocytes # 1.2 K/mcL (0.6-4.6); Lymphocytes % 10.7 %; Mean Corpuscular HGB Conc 33.1 g/dL (31.6-35.5); Mean Corpuscular Hemoglobin 30.3 pg (28.0-33.3); Mean Corpuscular Volume 91.7 fL (83.0-100.0); Mean Platelet Volume 9.4 fL (9.4-12.4); Monocytes % 9.5 %; Neutrophils # 8.5 K/mcL (1.6-8.9); Platelet Count 191 K/mcL (140-400); Red Blood Count 3.96 M/mcL (4.19-5.50); Red Cell Distribution Width 12.5 % (11.5-14.5); Segmented Neutrophils % 78.6 %; White Blood Count 10.8 K/mcL (4.3-11.1)
[2020-03-21 05:41] LABS: INR 1.4
[2020-03-21 05:44] LABS: Activated Partial Thrombo Time 29.1 Seconds (26.0-36.0)
[2020-03-21 05:59] LABS: Alanine Aminotransferase 21 Units/L (7-52); Albumin 3.5 g/dL (3.5-5.7); Albumin/Globulin Ratio 1.3 (1.1-2.2); Alkaline Phosphatase 56 Units/L (34-104); Aspartate Amino Transferase 20 Units/L (13-39); BUN/Creatinine Ratio 29 (6-26); Bilirubin,Total 0.5 mg/dL (0.3-1.0); Blood Urea Nitrogen 16 mg/dL (6-20); Calcium 9.1 mg/dL (8.6-10.3); Carbon Dioxide 28 mEq/L (23-29); Chloride 105 mEq/L (98-107); Chol/HDL Ratio 3.4 (0-4.9); Cholesterol 105 mg/dL (< 200); Globulin 2.7 g/dL (2.4-3.5); Glucose 103 mg/dL (70-105); HDL Cholesterol 31 mg/dL (40-59); LDL Cholesterol,Calculated 64 mg/dL (< 100); Magnesium 1.8 mg/dL (1.6-2.6); Osmolality,Calculated 285 (280-300); Sodium 137 mEq/L (136-145); Total Protein 6.2 g/dL (6.4-8.9); Triglycerides 50 mg/dL (< 150); eGFR For African Americans > 60 (> 60); eGFR For Non-African Americans > 60 (> 60)
[2020-03-21] MEDS: Ringers Solution, Lactated 1,000 ML IVC SCH (08:02)
[2020-03-21] MEDS: Insulin LISPRO 300 UNITS/3 ML VIAL SQ SCH ×3 (08:03→16:34)
[2020-03-21 08:29] LABS: Estimated Average Glucose 120 mg/dl
[2020-03-21 12:41] LABS: Amphetamine Screen,Urine Positive ng/mL (Cutoff=1000); Barbiturate Screen,Urine Negative ng/mL (Cutoff=200); Benzodiazepines Screen,Urine Negative ng/mL (Cutoff=200); Cannabinoid Screen,Urine Positive ng/mL (Cutoff = 50); Cocaine Screen,Urine Negative ng/mL (Cutoff= 300); Opiate Screen,Urine Negative ng/mL (Cutoff=300); Phencyclidine Screen,Urine Negative ng/mL (Cutoff=25)
[2020-03-21] MEDS ORDERED: *HR* Propofol 200 MG/20 ML VIAL IVP ONE (13:18)
[2020-03-21] MEDS ORDERED: *HR* FentaNYL (PF) 100 MCG/2 ML VIAL ONE (13:18)
[2020-03-21] MEDS ORDERED: Ondansetron 4 MG/2 ML VIAL ONE (13:18)
[2020-03-21] MEDS ORDERED: Lidocaine -MPF 2% 2 ML VIAL ONE (13:18)
[2020-03-21] MEDS ORDERED: Dexamethasone 4 MG/ML VIAL ONE (13:18)
[2020-03-21] MEDS ORDERED: *HR* Succinylcholine 200 MG/10 ML VIAL IVP ONE (13:18)
[2020-03-21] MEDS ORDERED: *HR* Midazolam HCl 2 MG/2 ML VIAL ONE (13:18)
[2020-03-21] MEDS ORDERED: *HR* Rocuronium Bromide 50 MG/5 ML VIAL ONE (13:18)
[2020-03-21] MEDS ORDERED: *HR* Promethazine 25 MG/ML VIAL IVP PRN ×2 (13:47→15:37)
[2020-03-21] MEDS ORDERED: Ondansetron 4 MG/2 ML VIAL IVP ONE (13:47)
[2020-03-21] MEDS ORDERED: *HR* FentaNYL (PF) 100 MCG/2 ML VIAL IVP PRN ×2 (13:47→15:37)
[2020-03-21] MEDS ORDERED: *HR* PHENYLEPHRINE 1,000 MCG/10 ML SYRINGE IVP ONE (14:42)
[2020-03-21] MEDS ORDERED: D5% in Water 1,000 ML IVC PRN (15:37)
[2020-03-21] MEDS ORDERED: Ketorolac 30 MG/ML VIAL IVP PRN (15:37)
[2020-03-21] MEDS ORDERED: *HR* Dextrose 50 % in Water (Vial) 50 ML VIAL IVP PRN (15:37)
[2020-03-21] MEDS ORDERED: Gadolinium Contrast Agent (WT Based) IV PRN ×2 (15:37)
[2020-03-21] MEDS ORDERED: Ipratropium/Albuterol Neb 3 ML IH PRN (15:37)
[2020-03-21] MEDS ORDERED: Dextrose Gel 15 GM/37.5 ML TUBE PO PRN ×2 (15:37)
[2020-03-21] MEDS ORDERED: Naloxone 0.4 MG/ML INJ IVP PRN (15:37)
[2020-03-21] MEDS ORDERED: Ondansetron 4 MG/2 ML VIAL IVP PRN (15:37)
[2020-03-21] MEDS: *HR* Heparin 5,000 UNIT/ML VIAL SQ SCH (16:29)
[2020-03-21] MEDS ORDERED: *HR* Heparin 5,000 UNIT/ML VIAL SQ SCH (18:00)
[2020-03-21] MEDS ORDERED: BUPRENORPHINE HCL SL SCH (21:00)
[2020-03-21] MEDS ORDERED: Divalproex (24 HR) 500 MG TABLET PO SCH (21:00)
[2020-03-21] MEDS ORDERED: NALOXONE HCL SL SCH (21:00)
[2020-03-21] MEDS: Divalproex (24 HR) 500 MG TABLET PO SCH (22:39)
[2020-03-21] MEDS: BUPRENORPHIN NALOXON SL SCH (22:41)
[2020-03-22 02:13] LABS: Basophils % 0.2 %; Eosinophils # 0.1 K/mcL (0.0-0.6); Eosinophils % 1.4 %; Hematocrit 33.9 % (37.5-50.1); Hemoglobin 11.3 g/dL (12.9-16.9); Immature Granulocytes % 0.5 % (0-4); Lymphocytes # 0.8 K/mcL (0.6-4.6); Lymphocytes % 14.5 %; Mean Corpuscular HGB Conc 33.3 g/dL (31.6-35.5); Mean Corpuscular Hemoglobin 30.5 pg (28.0-33.3); Mean Corpuscular Volume 91.4 fL (83.0-100.0); Mean Platelet Volume 9.2 fL (9.4-12.4); Monocytes # 0.8 K/mcL (0.0-1.3); Monocytes % 13.3 %; Neutrophils # 4.1 K/mcL (1.6-8.9); Platelet Count 157 K/mcL (140-400); Red Blood Count 3.71 M/mcL (4.19-5.50); Red Cell Distribution Width 12.5 % (11.5-14.5); Segmented Neutrophils % 70.1 %; White Blood Count 5.8 K/mcL (4.3-11.1)
[2020-03-22 02:32] LABS: BUN/Creatinine Ratio 20 (6-26); Blood Urea Nitrogen 11 mg/dL (6-20); Carbon Dioxide 26 mEq/L (23-29); Chloride 103 mEq/L (98-107); Glucose 119 mg/dL (70-105); Magnesium 1.6 mg/dL (1.6-2.6); Osmolality,Calculated 285 (280-300); Phosphorous 3.4 mg/dL (2.7-4.5); Potassium 3.4 mEq/L (3.5-5.1); Sodium 137 mEq/L (136-145); eGFR For African Americans > 60 (> 60); eGFR For Non-African Americans > 60 (> 60)
[2020-03-22] MEDS ORDERED: Vancomycin 1,500 MG/265 ML IV.SOLN IVPB SCH (03:00)
[2020-03-22] MEDS: *HR* Heparin 5,000 UNIT/ML VIAL SQ SCH ×2 (05:44→17:32)
[2020-03-22] MEDS: Piperacillin/Tazobactam 3.375 GM in 0.9 % Sodium Chloride Mini Bag 100 ML IVPB SCH (05:47)
[2020-03-22] MEDS ORDERED: BuPROPion XL (24 HR) 150 MG TABLET PO SCH (09:00)
[2020-03-22] MEDS: Insulin LISPRO 300 UNITS/3 ML VIAL SQ SCH ×3 (09:44→17:32)
[2020-03-22] MEDS: BUPRENORPHIN NALOXON SL SCH ×2 (09:45→21:08)
[2020-03-22] MEDS: metroNIDAZOLE 500 MG TABLET PO SCH (09:57)
[2020-03-22] MEDS: BuPROPion XL (24 HR) 150 MG TABLET PO SCH (09:57)
[2020-03-22] MEDS: Vancomycin 1,500 MG/265 ML IV.SOLN IVPB SCH ×2 (12:40→20:21)
[2020-03-22] MEDS ORDERED: Cefepime HCl 2,000 MG in Water for inj. (sterile) 20 ML IVP SCH (16:00)
[2020-03-22] MEDS: levoFLOXacin 750 MG TABLET PO SCH (16:13)
[2020-03-22] MEDS: Divalproex (24 HR) 500 MG TABLET PO SCH (20:22)
[2020-03-23] MEDS: *HR* Heparin 5,000 UNIT/ML VIAL SQ SCH ×2 (05:14→18:26)
[2020-03-23] MEDS: Vancomycin 1,500 MG/265 ML IV.SOLN IVPB SCH ×2 (05:17→12:52)
[2020-03-23 05:24] LABS: BUN/Creatinine Ratio 18 (6-26); Blood Urea Nitrogen 8 mg/dL (6-20); Calcium 8.3 mg/dL (8.6-10.3); Carbon Dioxide 26 mEq/L (23-29); Chloride 104 mEq/L (98-107); Glucose 132 mg/dL (70-105); Osmolality,Calculated 286 (280-300); Potassium 3.5 mEq/L (3.5-5.1); Sodium 138 mEq/L (136-145); eGFR For African Americans > 60 (> 60); eGFR For Non-African Americans > 60 (> 60)
[2020-03-23] MEDS: metroNIDAZOLE 500 MG TABLET PO SCH (08:16)
[2020-03-23] MEDS: BuPROPion XL (24 HR) 150 MG TABLET PO SCH (09:23)
[2020-03-23] MEDS: Insulin LISPRO 300 UNITS/3 ML VIAL SQ SCH ×3 (09:24→15:55)
[2020-03-23] MEDS: levoFLOXacin 750 MG TABLET PO SCH (09:25)
[2020-03-23 10:50] LABS: Troponin I < 0.03 ng/mL (< 0.04)
[2020-03-23 10:59] LABS: Vancomycin,Trough 9 mcg/mL (5-10)
[2020-03-23 11:12] LABS: Basophils % 0.3 %; Eosinophils # 0.3 K/mcL (0.0-0.6); Eosinophils % 4.3 %; Hematocrit 35.9 % (37.5-50.1); Hemoglobin 11.7 g/dL (12.9-16.9); Immature Granulocytes % 1.4 % (0-4); Lymphocytes # 1.3 K/mcL (0.6-4.6); Lymphocytes % 17.9 %; Mean Corpuscular HGB Conc 32.6 g/dL (31.6-35.5); Mean Corpuscular Hemoglobin 30.2 pg (28.0-33.3); Mean Corpuscular Volume 92.8 fL (83.0-100.0); Monocytes # 0.8 K/mcL (0.0-1.3); Monocytes % 10.8 %; Neutrophils # 4.6 K/mcL (1.6-8.9); Platelet Count 197 K/mcL (140-400); Red Blood Count 3.87 M/mcL (4.19-5.50); Red Cell Distribution Width 12.5 % (11.5-14.5); Segmented Neutrophils % 65.3 %
[2020-03-23] MEDS: BUPRENORPHIN NALOXON SL SCH (12:51)
[2020-03-23] MEDS: Vancomycin 2,000 MG/520 ML IV.SOLN IVPB SCH ×2 (14:54→20:31)
[2020-03-23] MEDS: *HR* Buprenorphine HCl 8 MG TAB.SUBL SL SCH ×2 (15:01→20:31)
[2020-03-23] MEDS: *HR* OxyCODONE Immed Rel 5 MG TABLET PO PRN ×2 (15:01→23:24)
[2020-03-23] MEDS: Divalproex (24 HR) 500 MG TABLET PO SCH (20:31)
[2020-03-24 00:58] LABS: Acinetobacter baumannii by PCR Not Detected (Not Detect); Candida albicans by PCR Not Detected (Not Detect); Candida glabrata by PCR Not Detected (Not Detect); Candida krusei by PCR Not Detected (Not Detect); Candida parapsilosis by PCR Not Detected (Not Detect); Candida tropicalis by PCR Not Detected (Not Detect); Enterobacter cloacae Cmplx PCR Not Detected (Not Detect); Enterobacteriaceae by PCR Not Detected (Not Detect); Enterococcus by PCR Not Detected (Not Detect); Escherichia coli by PCR Not Detected (Not Detect); Klebsiella oxytoca by PCR Not Detected (Not Detect); Klebsiella pneumoniae by PCR Not Detected (Not Detect); Proteus by PCR Not Detected (Not Detect); Pseudomonas aeruginosa by PCR Not Detected (Not Detect); Serratia marcescens by PCR Not Detected (Not Detect); Staphylococcus aureus by PCR DETECTED (Not Detect); Streptococcus agalactiae(B)PCR Not Detected (Not Detect); Streptococcus by PCR Not Detected (Not Detect); Streptococcus pneumoniae PCR Not Detected (Not Detect); Streptococcus pyogenes (A) PCR Not Detected (Not Detect); mecA Methicillin-Resist Gene DETECTED (Not Detect)
[2020-03-24] MEDS: Vancomycin 2,000 MG/520 ML IV.SOLN IVPB SCH ×2 (05:24→12:44)
[2020-03-24] MEDS: *HR* Heparin 5,000 UNIT/ML VIAL SQ SCH ×2 (05:25→17:55)
[2020-03-24] MEDS: Insulin LISPRO 300 UNITS/3 ML VIAL SQ SCH ×3 (08:07→17:55)
[2020-03-24] MEDS ORDERED: Perflutren Lipid Microsphere 1.3 ML in 0.9 % Sodium Chloride 8.7 ML IVP PRN (09:13)
[2020-03-24] MEDS: BuPROPion XL (24 HR) 150 MG TABLET PO SCH (09:52)
[2020-03-24] MEDS: *HR* Buprenorphine HCl 8 MG TAB.SUBL SL SCH ×2 (09:52→20:51)
[2020-03-24] MEDS: levoFLOXacin 750 MG TABLET PO SCH (09:52)
[2020-03-24 13:45] LABS: Hematocrit 35.6 % (37.5-50.1); Hemoglobin 11.9 g/dL (12.9-16.9); Mean Corpuscular HGB Conc 33.4 g/dL (31.6-35.5); Mean Corpuscular Volume 92.7 fL (83.0-100.0); Mean Platelet Volume 8.8 fL (9.4-12.4); Platelet Count 255 K/mcL (140-400); Red Blood Count 3.84 M/mcL (4.19-5.50); Red Cell Distribution Width 12.5 % (11.5-14.5); White Blood Count 6.3 K/mcL (4.3-11.1)
[2020-03-24] MEDS: Vancomycin 1,500 MG/265 ML IV.SOLN IVPB SCH (20:51)
[2020-03-24] MEDS: Divalproex (24 HR) 500 MG TABLET PO SCH (20:51)
[2020-03-25] MEDS: Vancomycin 1,500 MG/265 ML IV.SOLN IVPB SCH ×4 (02:32→18:03)
[2020-03-25] MEDS: *HR* OxyCODONE Immed Rel 5 MG TABLET PO PRN ×3 (03:12→21:58)
[2020-03-25] MEDS: *HR* Heparin 5,000 UNIT/ML VIAL SQ SCH ×2 (05:32→18:04)
[2020-03-25] MEDS: *HR* Buprenorphine HCl 8 MG TAB.SUBL SL SCH ×2 (08:21→21:53)
[2020-03-25] MEDS: BuPROPion XL (24 HR) 150 MG TABLET PO SCH (08:22)
[2020-03-25] MEDS: levoFLOXacin 750 MG TABLET PO SCH (08:22)
[2020-03-25] MEDS: Insulin LISPRO 300 UNITS/3 ML VIAL SQ SCH ×3 (08:38→18:25)
[2020-03-25 13:02] LABS: BUN/Creatinine Ratio 21 (6-26); Blood Urea Nitrogen 12 mg/dL (6-20); eGFR For African Americans > 60 (> 60); eGFR For Non-African Americans > 60 (> 60)
[2020-03-25 19:01] LABS: BUN/Creatinine Ratio 19 (6-26); Blood Urea Nitrogen 13 mg/dL (6-20); Carbon Dioxide 26 mEq/L (23-29); Chloride 107 mEq/L (98-107); Glucose 100 mg/dL (70-105); Magnesium 2.1 mg/dL (1.6-2.6); Osmolality,Calculated 288 (280-300); Sodium 139 mEq/L (136-145); eGFR For African Americans > 60 (> 60); eGFR For Non-African Americans > 60 (> 60)
[2020-03-25] MEDS: Divalproex (24 HR) 500 MG TABLET PO SCH (21:53)
[2020-03-26] MEDS: Vancomycin 1,500 MG/265 ML IV.SOLN IVPB SCH ×4 (04:02→23:07)
[2020-03-26] MEDS: *HR* Heparin 5,000 UNIT/ML VIAL SQ SCH ×3 (06:03→23:08)
[2020-03-26 07:19] LABS: Hematocrit 39.8 % (37.5-50.1); Hemoglobin 12.8 g/dL (12.9-16.9); Mean Corpuscular HGB Conc 32.2 g/dL (31.6-35.5); Mean Corpuscular Hemoglobin 30.6 pg (28.0-33.3); Mean Corpuscular Volume 95.2 fL (83.0-100.0); Platelet Count 344 K/mcL (140-400); Red Blood Count 4.18 M/mcL (4.19-5.50); Red Cell Distribution Width 12.4 % (11.5-14.5); White Blood Count 7.2 K/mcL (4.3-11.1)
[2020-03-26 07:39] LABS: BUN/Creatinine Ratio 17 (6-26); Blood Urea Nitrogen 11 mg/dL (6-20); Calcium 9.4 mg/dL (8.6-10.3); Carbon Dioxide 29 mEq/L (23-29); Chloride 106 mEq/L (98-107); Glucose 92 mg/dL (70-105); Magnesium 2.1 mg/dL (1.6-2.6); Osmolality,Calculated 291 (280-300); Potassium 4.3 mEq/L (3.5-5.1); Sodium 141 mEq/L (136-145); eGFR For African Americans > 60 (> 60); eGFR For Non-African Americans > 60 (> 60)
[2020-03-26] MEDS: Insulin LISPRO 300 UNITS/3 ML VIAL SQ SCH ×3 (09:01→16:16)
[2020-03-26] MEDS: *HR* Buprenorphine HCl 8 MG TAB.SUBL SL SCH ×2 (09:25→20:50)
[2020-03-26] MEDS: BuPROPion XL (24 HR) 150 MG TABLET PO SCH (09:25)
[2020-03-26] MEDS: levoFLOXacin 750 MG TABLET PO SCH (09:25)
[2020-03-26] MEDS ORDERED: Lidocaine -MPF 1% 5 ML AMPUL INFILT ONE (10:20)
[2020-03-26] MEDS: Divalproex (24 HR) 500 MG TABLET PO SCH (20:49)
[2020-03-26] MEDS: *HR* OxyCODONE Immed Rel 5 MG TABLET PO PRN (23:07)
[2020-03-27] MEDS: Vancomycin 1,500 MG/265 ML IV.SOLN IVPB SCH ×4 (05:04→23:12)
[2020-03-27] MEDS ORDERED: Lidocaine Viscous Oral Soln 15 ML SOLUTION MM PRN (08:28)
[2020-03-27] MEDS ORDERED: *HR* FentaNYL (PF) 100 MCG/2 ML VIAL IVP PRN (08:28)
[2020-03-27] MEDS ORDERED: 0.9 % Sodium Chloride 500 ML IVC ONE (08:29)
[2020-03-27] MEDS: *HR* Midazolam HCl 5 MG/5 ML VIAL IVP PRN ×3 (08:55→09:05)
[2020-03-27] MEDS: BuPROPion XL (24 HR) 150 MG TABLET PO SCH (09:49)
[2020-03-27] MEDS: Insulin LISPRO 300 UNITS/3 ML VIAL SQ SCH ×3 (09:50→16:33)
[2020-03-27] MEDS: *HR* Buprenorphine HCl 8 MG TAB.SUBL SL SCH ×2 (10:23→21:18)
[2020-03-27] MEDS: levoFLOXacin 750 MG TABLET PO SCH (10:23)
[2020-03-27] MEDS: *HR* Heparin 5,000 UNIT/ML VIAL SQ SCH ×3 (10:24→23:12)
[2020-03-27] MEDS ORDERED: Lidocaine -MPF 1% 5 ML AMPUL INFILT ONE (11:50)
[2020-03-27] MEDS: *HR* OxyCODONE Immed Rel 5 MG TABLET PO PRN (16:46)
[2020-03-27] MEDS: Divalproex (24 HR) 500 MG TABLET PO SCH ×2 (21:18→23:11)
[2020-03-28] MEDS: Vancomycin 1,500 MG/265 ML IV.SOLN IVPB SCH ×4 (05:42→23:41)
[2020-03-28] MEDS ORDERED: Ketorolac 15 MG/ML VIAL IVP ONE (06:25)
[2020-03-28] MEDS ORDERED: Ketorolac 30 MG/ML VIAL IVP ONE (06:25)
[2020-03-28] MEDS ORDERED: Acetaminophen IV 1,000 MG/100 ML INFUS..BTL IVPB ONE (06:26)
[2020-03-28] MEDS: Insulin LISPRO 300 UNITS/3 ML VIAL SQ SCH ×3 (08:56→16:32)
[2020-03-28] MEDS: BuPROPion XL (24 HR) 150 MG TABLET PO SCH (08:57)
[2020-03-28] MEDS: levoFLOXacin 750 MG TABLET PO SCH (08:57)
[2020-03-28] MEDS: *HR* Heparin 5,000 UNIT/ML VIAL SQ SCH ×3 (08:58→23:42)
[2020-03-28] MEDS: *HR* Buprenorphine HCl 8 MG TAB.SUBL SL SCH ×2 (08:58→19:57)
[2020-03-28] MEDS ORDERED: *HR* OxyCODONE Immed Rel 5 MG TABLET PO PRN (17:06)
[2020-03-28] MEDS: Divalproex (24 HR) 500 MG TABLET PO SCH (19:57)
[2020-03-28] MEDS ORDERED: *HR* OxyCODONE Immed Rel 5 MG TABLET PO ONE (20:10)
[2020-03-29] MEDS: Vancomycin 1,500 MG/265 ML IV.SOLN IVPB SCH (05:34)
[2020-03-29] MEDS: Insulin LISPRO 300 UNITS/3 ML VIAL SQ SCH ×2 (07:30→11:10)
[2020-03-29] MEDS: *HR* Heparin 5,000 UNIT/ML VIAL SQ SCH (08:29)
[2020-03-29] MEDS: *HR* Buprenorphine HCl 8 MG TAB.SUBL SL SCH (08:30)
[2020-03-29] MEDS: BuPROPion XL (24 HR) 150 MG TABLET PO SCH (08:30)
[2020-03-29] MEDS: levoFLOXacin 750 MG TABLET PO SCH (08:33)
[2020-03-29] MEDS ORDERED: Vancomycin 2,000 MG/520 ML IV.SOLN IVPB SCH (11:00)
[2020-03-29] MEDS ORDERED: Ketorolac 30 MG/ML VIAL IVP ONE (13:33)
[2020-03-29 14:13] VITALS: BP 164/84
== END 2020-03-29 15:27 | disposition left against medical advice (07) | DRG 853 ==
LOC: EMEROOARM 13:07 → 3BNU 13:07 → SUATTDRO 03-21 11:17 → 3ANU 03-24 18:05
PROVIDERS: ADMIT Internal Medicine; ATTEND Internal Medicine